=== PATIENT | female | born 1970 | race Caucasian/White ===

== ENCOUNTER 2022-10-04 13:36 | Outpatient (CLI) | payer OTHER, SELFPAY ==
--- NOTE | ~2022-10-04 | MR_ITS ---
MRI of the lumbar spine Clinical History: Spondylolisthesis Technique: Axial T2-weighted images, and sagittal T1-weighted, T2-weighted, and T2 fat-sat images wer e acquired. Findings: No fracture identified. There is 7 mm anterolisthesis of L4 over L5. There are reactive mar row signal changes about the L3-L4 and L4-L5 disc spaces due to underlying degenerative disc disease. At L1-L2, there is minimal degenerative disc narrowing. There is moderate facet arthropathy, no disc bulge or herniation. No central canal stenosis. There is moderate left neural foraminal narrowing and minimal right neural foraminal narrowing. At L2-L3, there is disc bulge and facet arthropathy, resulting in mild central canal stenosis. There is minimal bilateral neural foraminal narrowing. At L3-L4, there is advanced degenerative disc narrowing. Disc bulge and severe facet arthropathy cont ribute to severe spinal canal stenosis/thecal sac compression. There is severe right neural foraminal narrowing and moderate to severe left neural foraminal narrowing. At L4-L5, disc uncovering/bulge and advanced facet arthropathy result in severe central canal stenosi s/thecal sac compression. There is severe left neural foraminal narrowing and mild to moderate right neural foraminal narrowing. At L5-S1, there is advanced degenerative disc narrowing with diffuse disc bulge and moderate facet ar thropathy. No central canal stenosis. There is severe bilateral neural foraminal narrowing. Paravertebral soft tissues are unremarkable. Impression: 7 mm anterolisthesis of L4 over L5. Severe degenerative spondylitic changes at L3-L4 and L4-L5, as detailed above. Moderate degenerative change at L5-S1, with severe bilateral neural foraminal narrowing at this level . Reviewed, dictated and finalized at [facility] M. Impression: 7 mm anterolisthesis of L4 over L5. Severe degenerative spondylitic changes at L3-L4 and L4-L5, as detailed above. Moderate degenerative change at L5-S1, with severe bilateral neural foraminal n arrowing at this level.
--- NOTE | ~2022-10-04 | XR_ITS ---
XR lumbar spine min 4V 10/04/2022 14:11 Indication: Spondylolisthesis. Procedure: 4 views lumbar spine Comparison: No prior studies for comparison. Findings: There is levoscoliosis centered at L3. There is left lateral listhesis at L3-4. There is di sc narrowing at L3-4, L4-5 L5-S1. There is severe facet hypertrophy at L3-4 through L5-S1. No acute f racture or traumatic malalignment. There is grade 2 no significant alteration of alignment with flexi on and extension. Degenerative spondylolisthesis at L4-5. Impression: 1: Severe lumbar spondylosis with levoscoliosis. Reviewed, dictated and finalized at location A. Impression: 1: Severe lumbar spondylosis with levoscoliosis.
== END 2022-10-04 13:37 | disposition home or self-care (01) ==
LOC: ANHIMG 13:46
PROVIDERS: PCP Family Medicine; Visit Provider Neurological Surgery
DX: M47.816 Spondylosis without myelopathy or radiculopathy, lumbar region (principal); M41.86 Other forms of scoliosis, lumbar region
CPT/HCPCS: 72110; 72148

== ENCOUNTER 2022-11-27 13:15 | Outpatient (CLI) | payer OTHER, SELFPAY ==
--- NOTE | ~2022-11-27 | CT_ITS ---
EXAMINATION: CT lumbar spine wo con DATE: 11/27/2022 14:54 INDICATION: Spondylolisthesis. TECHNIQUE: Computed tomography (CT) of the lumbar spine was performed without intravenous contrast. A utomated exposure control and iterative reconstruction technique were employed. The dose-length produ ct was 1165.96 mGy-cm. COMPARISON: Lumbar spine MRI 10/04/2022 FINDINGS: There is 12 degrees levoscoliosis of thoracolumbar spine. There is 5 mm anterolisthesis of L4 on L5. There is mild chronic anterior wedging of T11-L1 vertebral bodies. There is mildly decrease d disc height at T12-L1, L1-L2, and L2-L3 and severely decreased disc height from L3-L4 through L5-S1 with endplate remodeling. The following disc levels are specifically discussed: L1-L2: The disc is bulging. There is severe right and mild left facet joint osteoarthritis. There is mild bilateral neural foraminal stenosis. There is mild central canal stenosis. L2-L3: The disc is bulging. There is severe right and moderate left facet joint osteoarthritis. There is mild bilateral neural foraminal stenosis. There is mild central canal stenosis. L3-L4: The disc is bulging. There is severe bilateral facet joint osteoarthritis. There is mild bilat eral neural foraminal stenosis. There is moderate central canal stenosis. L4-L5: The disc is bulging. There is severe bilateral facet joint osteoarthritis. There is mild bilat eral neural foraminal stenosis. There is moderate central canal stenosis. L5-S1: The disc is bulging. There is severe bilateral facet joint osteoarthritis. There is moderate b ilateral neural foraminal stenosis. There is mild central canal stenosis. IMPRESSION: 1. Severe lumbar spondylosis. 2. Thoracolumbar levoscoliosis. Reviewed, dictated and finalized at location A.
--- NOTE | ~2022-11-27 | DEXA_ITS ---
Bone Density Report Name: ANITA MALAGON Age: 52 Sex: Female Ethnicity: White Date of : 1970 Indication: postmenopausal; screening for osteoporosis; height loss; hysterectomy; Referring Provider: MISAEL CALLEJAS Study: Bone densitometry was performed. Exam Date: November 27, 2022 Accession number: [id number] Bone Density: Region BMD T-score Z-score Classification AP Spine(L1, L2) 0.987 0.1 1.0 Normal Femoral Neck (Left) 0.681 -1.5 -0.5 Osteopenia Total Hip (Left) 0.772 -1.4 -0.7 Osteopenia Femoral Neck (Right) 0.696 -1.4 -0.3 Osteopenia Total Hip (Right) 0.763 -1.5 -0.8 Osteopenia Total Hip Mean 0.768 -1.5 -0.8 Osteopenia World Health Organization criteria for BMD impression classify patients as: Normal (T-score at or above -1.0), Osteopenia (T-score between -1.0 and -2.5), or Osteoporosis (T-score at or below -2.5). 10-year Fracture Risk(1): Major Osteoporotic Fracture 5.7% Hip Fracture 0.4% Reported Risk Factors: [place] (), Neck BMD=0.681, BMI=43.3 (1) FRAX(R) Version 3.08. Fracture probability calculated for an untreated patient. Fracture probability may be lower if the patient has received treatment. Clinical Information Provided by Patient: Has the following medical conditions: Hysterectomy Patient maximum height was 62 Menopause Age: 51 No regular weight bearing exercise Drinks caffeinated beverages Onset of menses at age 7 Number of children 1 Impression: The patient has low bone mass, based on the Right Total Hip T-score. The patient has an estimated ten-year risk of hip fracture of 0.4% and an estimated ten-year risk of major fracture of 5.7%, based on the WHO FRAX algorithm. Discussion: BONE DENSITY IS LOW AT ONE OR MORE SKELETAL SITES. This patient's lowest T-score is low at one or more skeletal sites. It meets the World Health Organization's (WHO) criteria for ?low bone mass? (T-score between -1.0 and -2.5). The patient's 10-year risk of fracture as calculated by FRAX is less than the threshold where pharmacological therapy is recommended by the National Osteoporosis Foundation (NOF). However, all treatment decisions require clinical judgment and consideration of individual patient factors, including patient preferences, comorbidities, previous drug use, risk factors not captured in the FRAX model (e.g., frailty, falls, vitamin D deficiency, increased bone turnover, interval significant decline in bone density) and possible under or overestimation of fracture risk by FRAX. The patient should follow a healthful lifestyle (good nutrition with adequate calcium and vitamin D, and appropriate weight-bearing exercise). Follow-Up: Consider repeating this study in 2 to 3 years to reassess this patient's status, or sooner if there is some new clinical indicat
== END 2022-11-27 13:16 | disposition home or self-care (01) ==
PROVIDERS: PCP Family Medicine; Visit Provider Neurological Surgery
DX: Z78.0 Asymptomatic menopausal state (principal); M43.16 Spondylolisthesis, lumbar region; M41.85 Other forms of scoliosis, thoracolumbar region; M85.89 Other specified disorders of bone density and structure, multiple sites
CPT/HCPCS: 72131; 77080

== ENCOUNTER 2023-05-15 10:15 | Outpatient (CLI) | payer BC, SELFPAY ==
--- NOTE | ~2023-05-15 | XR_ITS ---
XR lumbar spine 2-3V 05/15/2023 10:52 Indication: Status post lumbar fusion. Procedure: 3 views lumbar spine Comparison: 10/04/2022 Findings: Status post posterior spinal fusion at L3-S1 with prosthetic disc device at L4-5. There is disc narrowing at L3-4. Hardware intact. Levoscoliosis. There is lateral bone graft at the fusion lev els. Impression: 1: Advanced lumbar spondylosis status post fusion at L3-S1. Reviewed, dictated and finalized at location A. 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
== END 2023-05-15 10:16 | disposition home or self-care (01) ==
LOC: ANHIMG 10:21
PROVIDERS: PCP Physician Assistant; Visit Provider Neurological Surgery
DX: Z98.1 Arthrodesis status (principal); M47.896 Other spondylosis, lumbar region
CPT/HCPCS: 72100

== ENCOUNTER 2023-08-21 10:33 | Outpatient (CLI) | payer BC, SELFPAY ==
--- NOTE | ~2023-08-21 | XR_ITS ---
EXAMINATION: XR lumbar spine 2-3V DATE: 08/21/2023 10:51 INDICATION: Lumbar fusion. TECHNIQUE: 3 views of lumbar spine were obtained. COMPARISON: Lumbar spine radiographs 05/15/2023 FINDINGS: There is 8 degrees levocurvature of thoracolumbar spine. There is 3 mm anterolisthesis of L 4 on L5. There is mild chronic anterior wedging of T12 and L1 vertebral bodies. There is severely dec reased disc height at L3-L4 and L5-S1. There are changes of anterior fusion procedure at L4-L5 with i nterbody devices. There are changes of posterior fusion procedure from L3 to S1 with pedicle screws. There is [id number] facet joint osteoarthritis in upper lumbar spine. IMPRESSION: 1. Anterior fusion procedure at L4-L5. 2. Posterior fusion procedure from L3 to S1. 3. Severe lower lumbar spondylosis. Reviewed, dictated and finalized at location A.
== END 2023-08-21 10:34 | disposition home or self-care (01) ==
PROVIDERS: PCP Physician Assistant; Visit Provider Neurological Surgery
DX: Z98.1 Arthrodesis status (principal); M47.896 Other spondylosis, lumbar region
CPT/HCPCS: 72100

== ENCOUNTER 2024-11-14 16:00 | Outpatient (CLI) | payer BC, SELFPAY ==
--- NOTE | ~2024-11-14 | XR_ITS ---
Lumbosacral Spine: AP and lateral views Clinical History: Radiculopathy COMPARISON: 08/21/2023 Findings: Stable levoscoliosis with spinal fusion from L3 through S1. Osseous and orthopedic hardware alignment is unchanged. Stable grade 1 retrolisthesis of L2 over L3. The sacroiliac joints are leonie lly outlined. Impression: No interval change from prior exam. Stable degenerative changes and postoperative changes, as noted a casimiro. Reviewed, dictated and finalized at location . Impression: No interval change from prior exam. Stable degenerative changes and postoperati ve changes, as noted above.
--- OUTSIDE RECORDS SUMMARY | 2024-11-14 16:05 | XMS_ITS | Clinical Summary ---
Author Organization [facility] Address [address] [place] [id number] Care Team Providers Care Crumb Packer Name Role Phone Dhara Kelly PA-C Primary Care Provider [phone]- [phone] Allergies Active Allergy Reactions Criticality Noted Date Comments Carbomer Itching,Swelling 01/30/2017 Acrylic nails, gel citizen of [place] - causes finger swelling and itchiness Medications buPROPion XL (WELLBUTRIN XL) 300 MG 24 hr tablet Take 1 tablet (300 mg total) by mouth every morning. 11/26/2022 Active gabapentin (NEURONTIN) 100 MG capsule Take 3 capsules (300 mg total) by mouth 3 (three) times daily as needed (neuropathy). Active atomoxetine (STRATTERA) 40 MG capsule Take 1 capsule (40 mg total) by mouth daily. 06/25/2022 Active Cyanocobalamin (B-12) 1000 MCG Tab Take 1,000 mcg by mouth every morning. 11/17/2022 Active omeprazole (PRILOSEC) 20 MG capsule Take 1 capsule (20 mg total) by mouth daily. Active Active Problems Problem Noted Date Diagnosed Date Spondylolisthesis 02/02/2023 Family History Medical History Relation Comments Breast Cancer Maternal Aunt Relation Status Comments Maternal Aunt Social History Tobacco Use Types Packs/Day Years Used Date Smoking Tobacco: Never Smokeless Tobacco: Never Alcohol Use Standard Drinks/Week Comments Not Currently 0 (1 standard drink = 0.6 oz pur e alcohol) Humiliation, Afraid, Rape, and Kick questionnair e Answer Date Recorded Within the last year, have y ou been afraid of your partner or ex-partner? No 02/02/2023 Within the last year, have y ou been humiliated or emotionally abused in other ways by your partner or ex-partner? No Within the last year, have y ou been kicked, hit, slapped, or otherwise physically hurt by your partner or ex-partner? No 02/02/2023 Within the last year, have y ou been raped or forced to have any kind of sexual activity by your partner or ex-partner? No 02/02/2023 Overall Financial Resource Strain (CARDIA) Answe r Date Recorded How hard is it for you to pa y for the very basics like food, housing, medical care, and heating? Not hard at all 02/02/2023 [facility] - Occupational Stress Questionnaire Answer Date Recorded Do you feel stress - tense, restless, nervous, or anxious, or unable to sleep at night because your mind is troubled all the time - these days? Not at all 02/02/2023 Exercise Vital Sign Answer Date Recorde d On average, how many days pe r week do you engage in moderate to strenuous exercise (like a brisk walk)? 0 days 02/02/2023 On average, how many minutes do you engage in exercise at this level? 0 min 02/02/2023 Hunger Vital Sign Answer Date Recorded Within the past 12 months, y ou worried that your food would run out before you got the money to buy more. Never true 02/03/20 23 Within the past 12 months, t he food you bought just didn't last and you didn't have money to get more. Never true 02/02/2023 PRAPARE - Transportation Answer Date Re corded In the past 12 months, has l ack of transportation kept you from medical appointments or from getting medications? No 01/17 In the past 12 months, has l ack of transportation kept you from meetings, work, or from getting things needed for daily living? No 02/02/2023 Housing Stability Vital Sign Answer Bryan e Recorded In the last 12 months, was t here a time when you were not able to pay the mortgage or rent on time? No 02/02/2023 In the last 12 months, how many places have you lived? 1 02/02/2023 In the last 12 months, was t here a time when you did not have a steady place to sleep or slept in a detention (including now)? No 02/02/2023 Comments No Sex and Gender Information Value Date Recorded Sex Assigned at Not on file Legal Sex Female 5:09 PM CDT Gender Identity Not on file Sexual Orientation Not on file Last Filed Vital Signs Vital Sign Reading Time Taken Comments Blood Pressure 118/67 02/04/2023 10:41 AM CDT Pulse 99 02/04/2023 10:41 AM CDT Temperature 37.2 C (99 F) 02/04/2023 10:41 AM CDT Respiratory Rate 14 02/04/2023 10:41 AM CDT Oxygen Saturation 98% 02/04/2023 10:41 AM CDT Inhaled Oxygen Concentration - - Weight 96.2 kg (212 lb 1.3 oz) 02/02/2023 6:31 A M CDT Height 157.5 cm (5' 2) 01/26/2023 11:09 AM CDT Body Mass Index 38.79 01/26/2023 11:09 AM CDT Plan of Treatment Health Maintenance Due Date Last Done Comments Colorectal Cancer Screening Colonoscopy (10 Years) 1970 Annual Physical 01/14/1971 Hepatitis C 01/14/1986 Pneumococcal Vaccine: 50+ Years (1 of 1 - PCV) 01/14/2018 Zoster Vaccines (1 of 2) 01/14/2018 COVID-19 Vaccine (3 - 2023-2 5 season) 2023 05/23/2021, 05/02/2021 DTaP, Tdap and Td Vaccines ( 2 - Td or Tdap) 12/17/2025 12/18/2015 Mammogram Screening 03/15/2026 03/15/2024, 03/03/2023, 03/02/2022 Hepatitis B Vaccines Completed 07/09/2016, 01/21/2016, 12/18/2015 Meningococcal B Vaccine Aged Out No l onger eligible based on patient's age to complete this topic Meningococcal Vaccine Aged Out No savita jesica eligible based on patient's age to complete this topic RSV Immunizations Under 20 Months Aged Out No longer eligible b ased on patient's age to complete this topic Medical Devices Implanted Type Area Cloth Layer Device Identifier Shelf Expiration Date Model / Serial / Lot Corelink F3d Straight Implanted:Qty: 1 on 02/02/2023 by Karime Jauregui MD at [facility] Cage N/A: Spine Lumbar [id number] 20 02/04/2027 [id number] / / [id number] Corelink Rods Implanted:Qty: 2 on 02/02/2023 by Karime Jauregui MD at [facility] Tavo N/A: Spine Lumbar [id number] / / Orthofix Set Screw Implanted:Qty: 8 on 02/02/2023 by Karime Jauregui MD at [facility] Screw N/A: Spine Lumbar NEW AGE MEDICAL [id number] / / Orthofix 6.5 X 45mm Screw Implanted:Qty: 6 on 02/02/2023 by Karime Jauregui MD at [facility] Screw N/A: Spine Lumbar NEW AGE MEDICAL [id number] / / Orthofix 6.5 X 35mm Screw Implanted:Qty: 2 on 02/02/2023 by Karime Jauregui MD at [facility] Screw N/A: Spine Lumbar NEW AGE MEDICAL [id number] / / Breast Implants Orthofix Top Loading Body Implanted:Qty: 8 on 02/02/2023 by Karime Jauregui MD at [facility] N/A: Spine Lumbar NEW AGE MEDICAL 34 / / Procedures Procedure Name Priority Date/Time Associated Diagnosis Comments MG SCREENING IMPLANT W MENA ОЛЬГА DIGI Routine 03/15/2024 4:30 PM PLANER OFFBEARER Encounter for screening mammogram for malignant neoplasm of breast from Last 3 Months or Most Recently Relevant to Health Maintenance Results * MG SCREENING IMPLANT W MENA ОЛЬГА DIGI (03/15/2024 4:30 PM PLANER OFFBEARER) Anatomical Region Laterality Modality Breast Bilateral Mammography 03/15/2024 4:59 PM PLANER OFFBEARER Impressions 03/15/2024 5:04 PM PLANER OFFBEARER ===== IMPRESSION: ===== 1. Stable mammographic appearance with no new findings to suggest malignancy in either breast. Assessment: ACR BI-RADS 2 - BENIGN FINDING(S) Recommendation: 1:Routine Screening Bilateral Comments: Ordered By: AMBER SAUCEDO Interpreted By: Eulogio Mayorga, 03/15/2024 4:59 PM Narrative 03/15/2024 5:04 PM PLANER OFFBEARER [address] [place] [address] EXAMINATION: Digital bilateral screening mammogram with 3-D tomosynthesis EXAM DATE/TIME: 03/15/2024 4:10 PM REASON FOR EXAM: Screening Breast implants in 2007 with breast reconstruction.. Breast carcinoma in maternal aunt at age 60 COMPARISON: 03/02/2022. 03/03/2023 Technique: Digital screening mammography of both breasts was performed in addition to 3-D Tomosynthesis technique. This study was read with the assistance of a computer-aided detection system. Tissue density: There are scattered areas of fibroglandular density. Findings: Bilateral breast prostheses are intact. There is no new focal asymmetry, dominant mass lesion, area of skin thickening, or cluster of suspicious appearing calcifications in either breast to suggest malignancy. 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
--- OUTSIDE RECORDS SUMMARY | 2024-11-14 16:05 | XMS_ITS | Data Portability ---
Author Organization [facility], [id number] Address [address] [place] [address] Assessment No assessment recorded. Plan of Treatment Reminders Order Date Submit Date Provider Last Modified By Organization Details Last Modified Time Details Appointments ANNUAL- EST 15 2025 03:15P Gabriel DILLON MD Not available Not available Not available Lab estradiol , serum 2024 025 [facility], [address] [place], [address], 09/20/2024 13:59:10 progester one, serum [address] [place] [address], [address] [place], [address], 09/20/2024 13:59:10 testoster one, free + total, serum 2024 025 [facility], [address] [place], [address], 09/20/2024 13:59:11 vitamin D, 25-hydrox y, total, serum 2024 025 [facility], [address] [place], [address], 09/20/2024 13:59:11 vitamin B12, serum 2024 025 [facility], [address] [place] [address], [address], 09/20/2024 13:59:11 TSH + free T4, serum 2024 025 [facility], [address] [place], [address], 09/20/2024 13:59:11 cortisol, serum or plasma 2024 025 [facility], [address] [place] [address], [id number], 09/20/2024 13:59:11 insulin, fasting, serum [address] [place] [address], [address] [place] [address], [address], 09/20/2024 13:59:11 HbA1c (hemoglob in A1c), blood 2024 025 [facility], [address] [place] [address], [id number], 09/04/2024 12:29:39 Referral None recorded. Procedures None recorded. Surgeries None recorded. Imaging MAMMO, screening , tomosynth esis, bilateral [address] [place] [address] Registration Department, [address] [place] [address] [place], [address], 09/06/2024 09:09:24 Medication Orders None recorded. Patient TargetsNo targets recorded. Patient Instructions Encounter Date Encounter Id Patient Instructions Last Modified By Organization Details Last Modified Time 08/23/2024 [id number] diet and exercise for metabolic syndrome: care instructions [email or web address] Not available 08/23/2024 16:28:12 Reason for Referral None Reported. Results Created Date Observation Date Name Description Value Unit Range Abnormal Flag Note LastModifiedBy Organization Detail LastModifiedTime Result Notes Documentation Provider Name and Address Organization Details Recorded Time Estradiol, Serum : estradiol and progesterone normal AMBER SAUCEDO MD [address], [place], [address], [facility] 10/03/2024 11:07:05 Problems Name Problem SNOMED Code Status Onset Date Resolution Date Notes Provider Name and Address Organization Details Recorded Time Atypical glandula r cells on cervical Papanico laou smear 646700853 Active Abnormal PAP Smear, 07/01/19 12 - ds hx of leep or conizati on Problem Code: 795.00; Problem Code Type: ICD-9; Startdat e: '1992'; Not Available [facility] 5 12:02:59 Chronic depressi ve personal ity disorder 636625621 Active Depressi on, Problem Code: 301.12; Problem Code Type: ICD-9; Startdat e: '2011'; Not Available [facility] 5 12:02:59 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, [place], [address] , [facility] 5 16:21:59 Obesity 044090771 Active [address], MD [address], [place], [address] , [facility] 16:25:13 Problem Notes None recorded. Procedures Surgical History Date Name Laterality Status Provider Name and Address Organization Details Recorded Time 03/15/20 24 Date of Last [facility]ammogram [facility] 08/23/2024 14:34:41 12/19/19 20 total knee replacement completed Not Available [facility] 08/17/2024 12:52:03 04/10/20 16 arthroscopy of knee completed Not Available [facility] 08/17/2024 12:52:03 Breast augmentation w/implt completed Not Available [facility] 08/17/2024 12:52:02 Conization of cervix completed Not Available [facility] 08/17/2024 12:52:02 dilation and curettage completed Not Available [facility] 08/17/2024 12:52:02 hysterectomy completed [facility] Available [facility] 08/17/2024 12:52:02 colonoscopy completed Not Available [facility] 08/17/2024 12:52:03 Breast Surgery [facility] 08/23/2024 15:54:50 Imaging Results None recorded. Procedure Notes None recorded. Medical Equipment None Reported. Allergies No known drug allergies Medications Name Sig Start Date Stop Date Status Note LastModified by Organization Details LastModified Time nystatin 100,000 unit/mL oral suspension SWISH 5 ML IN MOUTH AND SWALLOW 4 TIMES DAILY 08/23 completed Not Available Not Available Not Available prednisone 10 mg tablet TAKE 6 TABLETS BY MOUTH TODAY, 5 TABS TOMORROW, THEN DECREASE BY 1 TAB DAILY. TAKE WITH FOOD 08/23 completed Not Available Not Available Not Available fluconazole 150 mg tablet TAKE 1 TABLET BY MOUTH ONCE DAILY IN THE MORNING FOR 7 DAYS 08/23 completed Not Available Not Available Not Available benzonatate 200 mg capsule TAKE 1 CAPSULE BY MOUTH THREE TIMES DAILY NEEDED 08/23 completed Not Available Not Available Not Available prednisone 20 mg tablet TAKE 2 TABLETS BY MOUTH FOR 3 DAYS, THEN TAKE 1 TABLET FOR 7 DAYS. 08/23 completed Not Available Not Available Not Available tramadol 50 mg tablet TAKE 2 TABLETS BY MOUTH EVERY 12 HOURS NEEDED FOR PAIN active Not Available Not Available No t Available estradiol 1 mg tablet Take 1 tablet by mouth twice daily 2024 active Not Available Not Available Not Avai lable progesteron e micronized 200 mg capsule TAKE 1 CAPSULE BY MOUTH EVERY DAY AT BEDTIME 2024 active Not Available Not Available Not Avai lable albuterol sulfate HFA 90 mcg/actuati on aerosol inhaler INHALE 2 PUFFS BY MOUTH 4 TIMES DAILY NEEDED FOR COUGH 08/23 completed Not Available Not Available Not Available celecoxib 100 mg capsule TAKE 1 CAPSULE BY MOUTH ONCE DAILY NEEDED active Not Available Not Available No t Available atomoxetine 40 mg capsule TAKE 1 CAPSULE BY MOUTH ONCE DAILY IN THE MORNING active Not Available Not Available No t Available bupropion HCl XL 300 mg 24 hr tablet, extended release TAKE 1 TABLET BY MOUTH ONCE DAILY IN THE MORNING active Not Available Not Available No t Available Caryn 0.1 mg/24 hr transdermal patch APPLY 1 PATCH TOPICALLY TWICE A WEEK 08/23 completed Not Available Not Available Not Available Vitals Date Recorded Body weight Body mass index (BMI) Body height Systolic And Diastolic Provider Name and Address Organization Details Last Updated DateTime 08/23/2024 91525.44 g 37.5 kg/m2 157.48 cm 122/64 mm[Hg] Deborah Padron [facility] 08/23/2024 15:58:57 Social History Question Answer Notes LastModified by Organizat ion Details LastModified Time Tobacco Smoking Status Former Smoker Screening : 8 [facility] Available [facility] 08/17/2024 12:58:21 Do You Have An Advance Directive? No Information not available 08/23/2024 What Is Your Level Of Caffeine Consumption? Occasional Information not available 08/23/2024 What Type Of Diet Are You Following? REGULAR Information not available 08/23/2024 What Is Your Relationship Status? Information not available 08/23/2024 Sex: Female Functional Status Question Answer Note LastModified by Organizat ion Details LastModified Time Do you use any illicit or recreational drugs? No [email or web address] Information not available 08/17/2024 What is your level of alcohol consumption? Occasional Qty: 0-2 per day; Note: Use status used: Current some day Amount used: social Information not available 08/17/2024 Are you currently employed? 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 Moderate SocialHistor yQuestion: 'Moderate Amount of Exercise (1-3 times weekly)'; Information not available 08/17/2024 Mental Status None recorded. Family History Relationship Description Onset Age of this Age Resolved Age Notes LastModified by Organization Details LastModified Time Brother Malignant neoplastic disease Cancer - [facility] 2016 Not available 08/17/2024 13:39:14 Brother Hypertensive disorder High Blood Pressu re Not available 08/17/2024 13:39:14 Maternal Grandfather Malignant neoplastic disease Cancer - [facility] 2016 Not available 08/17/2024 13:39:14 Unspecified Relation Malignant neoplastic disease Cancer - [facility] 2016 Relati ve: 'Uncle '; Not available 08/17/2024 13:39:14 Father Hypertensive disorder High Blood Pressu re Not available 08/17/2024 13:39:14 Brother Aneurysm Aneury - [facility] 2016 API-27 Not available 08/23/2024 15:53:18 Medical History Condition Response Psych- Depression Y Cancer- Genetic screening Ortho- Arthritis Y Endocrinology- Hypothyroidism Y Gynecological History Statement/Question Response Flow Heavy Date of Last Mammogram 03/15/2024 History of Fibroids Y Date of LMP 07/12/2011 Current Control Method: Hysterecto my Age at first intercourse 16 Date of Last Colonoscopy History of Infertility Y History of Vulvar Dysplasia N History of Cervical Dysplasia N Duration of Flow (days) 0 History of HPV Y Age at Menarche 7 Current Control Method None History of Endometriosis N Frequency of Cycle (Q days) 0 Sexually Active? Y History of Abnormal PAP Y History of Dysmenorrhea N Menses Monthly N Date of Last Pap Smear Sexual Problems? N History of Sexually Transmitted Infectio n N Obstetrics History GPAL:G 4 P 1 0 3 1 Type Value Multiple Births 0 Full Term 1 Induced 0 Spontaneous 3 Premature 0 Living 1 Ectopics 0 Total 4 Immunizations Vaccine Type Date Status Note Provider Nam e and Address Organization Details Recorded Time Tdap 12/18/[address] [facility] 08/23/2024 11:56:21 Past Encounters Encounter ID Performer Location Encounter Start Date Encounter Closed Date Diagnosis/Indication Diagnosis SNOMED-CT Code Diagnosis ICD10 Code Diagnosis Note [id number] AMBER BELTRÁN RD, MD [id number] [address] [place] [address] 08/23/2024 15:52:14 08/23/2024 16:24:48 Screening mammography 79251431 Z12.31 Fatigue 96070028 R53.82 Check Vitamin D and B12 Menopausal syndrome 1237 67372 N95.9 Continue current doses but we may need to increase Gynecologi c examination 89205987 Z01.419 Yearly mammogramR egular exercise once knee is betterFU in one yearScreen ing colonoscop yGeneral lab screening yearly Obesity 876719159 E66.81 2 Z68.35 Recommend GLP-1 treatment but she does not think she has insurance coverage.T his handout has some ideas for nutrition changes. Health Concerns Section Related Observation LastModified by Organization Detai ls LastModified Time None Recorded Concern Status LastModified by Organization Details LastModified Time None Recorded Advance Directives Directive N: Payers Insurance Date Sequence Insurance Name Policy Number Policy Piper Covered Member ID Piper Member ID Guarantor Name 09/01/2024 1 [place] [id number] Iliana Swan [id number] Iliana Swan OBGyn Episode Ob Episode Information Episode Created Date Number of Fetuses Patient Bloodtype Patient rh Status Prepregnancy Weight lbs Domestic Partner Domestic Partner Phone Father Name 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 Status 09/01/19 25 1 CLOSED Fetus Data First Name Last Name Admitted to NICU Weight (g) Sex Living Outcome Pediatric Complications Fetus ID Race Codes Race Delivery Type M [id number] Vaginal Jared Calculation Initial Jared Date Initial Exam Date Initial Exam Provider Initial Ultrasound Date Last Menstrual Period Date Ultra Sound Weeks Gestation 0 Eighteen To Twenty Week Jared Update Ultra Sound Date Fundal Height At Umbil Quickening Date Ultra Sound Latest Weeks Gestation Final Jared Confirmed By Final Jared Confirmed Date Final Jared Date Ultra Sound Latest Days Gestation 0 0 Menstrual History Last Menstrual Date Menses Monthly On Bcp Conception Prior Menses Frequency Hcg Plus Date Menarche Onset Age Delivery Information Delivery Date Delivery Type Labor Anesthesia Weeks Gestation Incision Type Labor Labor Length Hrs Delivered By Post Complications Tubal Sterilization Discharge Date Comments 4 [facility] idural 38 false [place] e, fetus_1_w eight_lbs : '8-5'; Discharge Information Feeding Method Contraceptive Method Maternal HG B and HCT Levels
--- OUTSIDE RECORDS SUMMARY | 2024-11-14 16:05 | XMS_ITS | Data Portability ---
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 [email or web address] Not available 04/10/2022 10:34:15 08/06/2023 08/06/2023 Sections of the HPI, exam and assessment completed by SUNNI Diaz student and have been reviewed by me. I agree with the exam findings, assessment and plan except where specifically documented or amended. -Dhara Johnson, [facility], [place] [email or web address] Not available 08/06/2023 12:22:51 Plan of Treatment Reminders Order Date Submit Date Provider Last Modified By Organization Details Last Modified Time Details Appointments None recorded. Lab CMP, serum or plasma 2024 025 [email or web address] [facility], [address] [place], [address], 5 08:08:07 HbA1c (hemoglobi n A1c), blood 2024 025 [email or web address] [facility], [address] [place], [address], 5 08:08:07 lipid panel, serum 2024 025 [facility], [address] [place], [address], 5 08:08:07 TSH, serum or plasma [address], [address] [place], [address], 5 08:00:50 CBC w/ auto diff [address], [address] [place], [address], 5 08:08:07 drug screen, 14 drugs (detectime d), urine 2023 024 [facility], [address] [place] [address], [address], [place], [address], 4 15:07:49 culture, aerobic + anaerobic 2022 023 [facility], [address], [address], [place], [address], 3 14:08:31 drug screen, 14 drugs (detectime d), urine 2022 023 [facility], [address], [place], [address], 3 20:09:11 CBC w/ auto diff [address], [address] [place], [address], 3 10:18:51 CMP, serum or plasma [address], [address] [place], [address], 3 10:18:51 lipid panel w/ direct LDL, serum 2021 [facility], [address] [place], [address], 2 11:45:13 TSH + free T4, serum [address], [address] [place], [address], 3 10:18:51 HbA1c (hemoglobi n A1c), blood [address], [address] [place] [address], [address], 3 10:18:51 iron + TIBC + ferritin, serum 2021 [facility], [address] [place], [address], 2 11:45:13 ESR (erythrocy te sedimentat ion rate), blood 2021 [facility], [address] [place], [address], 2 11:45:13 C reactive protein, QN, serum or plasma [address], [address] [place], [address], 3 10:18:51 Referral None recorded. Procedures None recorded. Surgeries None recorded. Imaging MAMMO, screening, bilateral 2022 023 [facility] (Radiology), [address] [place] [address], [place], [address], 3 10:56:54 Medication Orders Ozempic 0.25 mg or 0.5 mg (2 mg/1.5 mL) subcutaneo us pen injector 2024 025 [facility] [address] [place], [address], 5 16:51:12 fluconazol e 150 mg tablet 2024 025 [facility] [address] [place], [address], 5 16:39:04 bupropion HCl XL 300 mg 24 hr tablet, extended release 2024 025 [facility] [address] [place], [address], 5 16:42:29 atomoxetin e 40 mg capsule 2024 025 [facility] [address] [place], [address], 5 16:42:31 cyclobenza noe 10 mg tablet 2023 024 [facility] [address] [place], [address], 4 14:54:36 gabapentin 300 mg capsule 2022 023 [facility] [address] [place], [address], 4 12:34:46 gabapentin 100 mg capsule 2022 023 [facility] [address] [place], [address], 3 15:18:35 tramadol 50 mg tablet 2021 022 [facility] [address] [place], [address], 4 18:30:12 Adderall XR 20 mg capsule,ex tended release 2021 022 [facility] [address] [place], [address], 3 15:07:47 Patient TargetsNo targets recorded. Patient Instructions Encounter Date Encounter Id Patient Instructions Last Modified By Organization Details Last Modified Time 08/12/2022 [id number] hot flashes during menopause: care instructions [email or web address] Not available 08/12/2022 15:13:10 A healthy lifestyle: care instructions [email or web address] Not available 08/12/2022 15:12:06 01/25/2023 [id number] I have reviewed the patient's medical record and the note from this clinical encounter. I was available by phone for the duration of the visit. I agree with the assessment and plan with the following addendum: [none]. Luis Gtz MD [email or web address] Not available 01/26/2023 12:09:44 08/06/2023 [id number] A healthy lifestyle: care instructions [email or web address] Not available 08/08/2023 14:50:54 06/27/2024 [id number] A healthy lifestyle: care instructions [email or web address] Not available 06/27/2024 16:48:29 Reason for Referral None Reported. Results Created Date Observation Date Name Description Value Unit Range Abnormal Flag Note LastModifiedBy Organization Detail LastModifiedTime 08/13/1908/18/2022 COMPL IANCE DRUG OLAMIDE SIS, UR summary report (summary) FINAL ===== ===== ===== ===== ===== ===== ===== ===== ===== ===== ===== ===== ===== === TOXAS SURE COMP DRUG OLAMIDE SIS,U R ===== ===== ===== ===== ===== ===== ===== ===== ===== ===== ===== ===== ===== === Test Resul t Flag Units Drug Prese nt Amphe tamin e 1207 ng/mg creat Amphe tamin e is avail able as a sched ule II presc ripti on drug. Trama dol 2916 ng/mg creat O-Efrain methy ltram adol 888 ng/mg creat N-Efrain methy ltram adol 3171 ng/mg creat Sourc e of trama dol is a presc ripti on medic ation . O-efrain methy ltram adol and N-efrain methy ltram adol are expec alyssa metab olite s of trama dol. Bupro pion PRESE NT Sibley xybup ropio n PRESE NT Sibley xybup ropio n is an expec alyssa metab olite of bupro pion. Ibupr ofen PRESE NT Doxyl amine PRESE NT Dextr ometh orpha n PRESE NT Dextr orpha n/Lev orpha nol PRESE NT Dextr orpha n is an expec alyssa metab olite of dextr ometh orpha n, an over- the-c ounte r or presc ripti on cough suppr essan t. Dextr orpha n canno t be disti nguis hed from the sched uled presc ripti on medic ation levor phano l by the metho d used for olamide sis. Guaif enesi n PRESE NT Guaif enesi n may be admin ister ed as an over- the-c ounte r or presc ripti on drug; it may also be prese nt as a break down produ ct of metho carba mol. ===== ===== ===== ===== ===== ===== ===== ===== ===== ===== ===== ===== ===== === Test Resul t Flag Units Ref Range Creat inine 91 mg/dL >=20 ===== ===== ===== ===== ===== ===== ===== ===== ===== ===== ===== ===== ===== === Decla red Medic ation s: Medic ation list was not provi ded. ===== ===== ===== ===== ===== ===== ===== ===== ===== ===== ===== ===== ===== === For clini augustina consu ltati on, pleas e call [phone]. ===== ===== ===== ===== ===== ===== ===== ===== ===== ===== ===== ===== ===== === Not Available [facility] ([facility]) [address] [place], [address], 08/18/2022 20:09:10 08/13/1908/18/2022 COMPL IANCE DRUG OLAMIDE SIS, UR pdf . Not Available [facility] ([facility]) [address] [facility], [place], [address], 08/18/2022 20:09:10 01/26/20 23 01/29/2023 ANAER OBIC AND AEROB IC CULTU RE anaerobic culture Final report Not Available [facility] ([facility]) [address] [place], [address], 01/31/2023 14:08:31 01/26/20 23 01/29/2023 ANAER OBIC AND AEROB IC CULTU RE result 1 Commen t No anaer obic growt h in 72 hours . Not Available [facility] ([facility]) [address] [facility], [place], [address], 01/31/2023 14:08:31 01/26/20 23 01/31/2023 ANAER OBIC AND AEROB IC CULTU RE aerobic culture Final report Not Available [facility] ([facility]) [address] [facility], [place], [address], 01/31/2023 14:08:31 01/26/2001/31/2023 ANAER OBIC AND AEROB IC CULTU RE result 1 Mixed skin cheri Not Available [facility] ([facility]) [address] [facility], [place], [address], 01/31/2023 14:08:31 01/27/20 23 01/28/2023 Bacte marilu ident ified in Urine by Cultu re specimen source identified URINE CLEAN CATCH SPEC DESCR IPTIO N URINE CLEAN CATCH 01/26 12:[address] [facility] Not Available Not Available 06/27/2024 05:12:53 01/27/2001/28/2023 Bacte marilu ident ified in Urine by Cultu re service comment NO SPECIA L REQUES T SPECI AL REQUE STS NO SPECI AL REQUE ST 01/26 12:[address] [facility] Not Available Not Available 06/27/2024 05:12:53 01/27/2001/28/2023 Bacte marilu ident ified in Urine by Cultu re bacteria identified in specimen by culture POLYMI CROBIA L GROWTH CONSIS TENT WITH NORMAL GENITA L CHERI. SUSCEP TIBILI TIES NOT ROUTIN FIDELIA PERFOR MED. CULTU RE RESUL T POLYM ICROB IAL GROWT H CONSI STENT WITH LEEANNE L GENIT AL CHERI . SUSCE PTIBI LITIE S NOT ROUTI SAUL PERFO RMED. 01/28 8:[address] [facility] Not Available Not Available 06/27/2024 05:12:53 01/27/2001/26/2023 Urina lysis compl ete W Refle x Cultu re panel - Urine collection method - specimen URINE CLEAN CATCH Speci men Type URINE CLEAN CATCH 01/26 11:[address] [facility] Not Available Not Available 06/27/2024 05:12:53 01/27/20 23 01/26/2023 Urina lysis compl ete W Refle x Cultu re panel - Urine color of urine LIGHT YELLOW COLOR (U) LIGHT YELLO W 01/26 12:[address] [facility] Not Available Not Available 06/27/2024 05:12:53 01/27/2001/26/2023 Urina lysis compl ete W Refle x Cultu re panel - Urine clarity of urine CLEAR TRANS PAREN CY CLEAR 01/26 12:[address] [facility] Not Available Not Available 06/27/2024 05:12:53 01/27/2001/26/2023 Urina lysis compl ete W Refle x Cultu re panel - Urine specific gravity of urine 1.015 low: 1.001h igh: 1.03 SPECI FIC GRAVI TY (U) 1.015 1.001 - 1.030 01/26 12:[address] [facility] Not Available Not Available 06/27/2024 05:12:53 01/27/2001/26/2023 Urina lysis compl ete W Refle x Cultu re panel - Urine pH of urine 5.5 low: 5high: 9 U PH 5.5 5.0 - 9.0 01/26 12:[address] [facility] Not Available Not Available 06/27/2024 05:12:53 01/27/2001/26/2023 Urina lysis compl ete W Refle x Cultu re panel - Urine leukocytes [#/volume] in urine by test strip 25 text: negati ve abnormal LEUKO CYTES (U) 25 (A) NEGAT DEN 01/26 12:[address] [facility] Not Available Not Available 06/27/2024 05:12:53 01/27/20 23 01/26/2023 Urina lysis compl ete W Refle x Cultu re panel - Urine nitrite [presence] in urine NEGATI VE text: negati ve NITRI JOSE DANIEL NEGAT DEN NEGAT DEN 01/26 12:[address] [facility] Not Available Not Available 06/27/2024 05:12:53 01/27/20 23 01/26/2023 Urina lysis compl ete W Refle x Cultu re panel - Urine protein [mass/volume ] in urine by test strip NEGATI VE text: <30 mg/dL PROTE IN RANDO M (U) NEGAT DEN <30 MG/DL 01/26 12:[address] [facility] Not Available Not Available 06/27/2024 05:12:53 01/27/2001/26/2023 Urina lysis compl ete W Refle x Cultu re panel - Urine glucose [mass/volume ] in urine NORMAL text: normal mg/dL GLUCO SE (U) LEEANNE L LEEANNE L MG/DL 01/26 12:[address] [facility] Not Available Not Available 06/27/2024 05:12:53 01/27/20 23 01/26/2023 Urina lysis compl ete W Refle x Cultu re panel - Urine ketones [mass/volume ] in urine by test strip NEGATI VE text: negati ve mg/dL KETON ES (U) NEGAT DEN NEGAT DEN MG/DL 01/26 12:[address] [facility] Not Available Not Available 06/27/2024 05:12:53 01/27/20 23 01/26/2023 Urina lysis compl ete W Refle x Cultu re panel - Urine urobilinogen [units/volum e] in urine by test strip NORMAL text: normal mg/dL UROBI LINOG EN LEEANNE L LEEANNE L MG/DL 01/26 12:[address] [facility] Not Available Not Available 06/27/2024 05:12:53 01/27/20 23 01/26/2023 Urina lysis compl ete W Refle x Cultu re panel - Urine bilirubin.to radha [mass/volume ] in urine NEGATI VE text: negati ve mg/dL BILIR UBIN (U) NEGAT DEN NEGAT DEN MG/DL 01/26 12:[address] [facility] Not Available Not Available 06/27/2024 05:12:53 01/27/20 23 01/26/2023 Urina lysis compl ete W Refle x Cultu re panel - Urine erythrocytes [#/volume] in urine by automated test strip NEGATI VE text: negati ve BLOOD (U) NEGAT DEN NEGAT DEN 01/26 12:[address] [facility] Not Available Not Available 06/27/2024 05:12:53 01/27/20 23 01/26/2023 Urina lysis compl ete W Refle x Cultu re panel - Urine service comment SPECIM EN SETUP FOR CULTUR E CULTU RE & SENSI TIVIT Y INDIC ATED? SPECI MEN SETUP FOR CULTU RE 01/26 12:[address] [facility] Not Available Not Available 06/27/2024 05:12:53 01/27/20 23 01/26/2023 Urina lysis compl ete W Refle x Cultu re panel - Urine mucus [#/area] in urine sediment by microscopy low power field RARE text: /lpf MUCUS RARE /LPF 01/26 12:[address] [facility] Not Available Not Available 06/27/2024 05:12:53 01/27/20 23 01/26/2023 Urina lysis compl ete W Refle x Cultu re panel - Urine leukocytes [#/area] in urine sediment by microscopy high power field 1 text: <6 /hpf WBC/H PF 1 <6 /HPF 01/26 12:10 PM CDT [facility] Not Available Not Available 06/27/2024 05:12:53 01/27/20 23 01/26/2023 Urina lysis compl ete W Refle x Cultu re panel - Urine erythrocytes [#/area] in urine sediment by microscopy high power field <1 text: <6 /hpf RBC/H PF <1 <6 /HPF 01/26 12:[address] [facility] Not Available Not Available 06/27/2024 05:12:53 01/27/20 23 01/26/2023 Urina lysis compl ete W Refle x Cultu re panel - Urine epithelial cells.squamo us [#/area] in urine sediment by microscopy high power field RARE text: /hpf SQUAM OUS EPITH ELIAL S RARE /HPF 01/26 12:[address] [facility] Not Available Not Available 06/27/2024 05:12:53 01/27/20 23 01/26/2023 Urina lysis compl ete W Refle x Cultu re panel - Urine interpretati on and review of laboratory results Abnorm al Not Available Not Available 05:12:53 01/27/2001/26/2023 aPTT in Plate let poor plasm a by Coagu latio n assay APTT in platelet poor plasma by coagulation assay 36.2 text: 25.1 - 36.5 sec PTT 36.2 25.1 - 36.5 SEC 01/26 12:[address] [facility] Not Available Not Available 06/27/2024 05:12:53 01/27/2001/26/2023 Proth rombi n time (PT) prothrombin time (PT) 11.9 text: 10.2 - 12.9 sec PROTI ME 11.9 10.2 - 12.9 SEC 01/26 12:[address] [facility] Not Available Not Available 06/27/2024 05:12:53 01/27/20 23 01/26/2023 Proth rombi n time (PT) INR in platelet poor plasma by coagulation assay 1 INR 1.0 01/26 12:[address] [facility] Not Available Not Available 06/27/2024 05:12:53 01/27/20 23 02/02/2023 Blood type and Indir ect antib mike scree n panel - Blood ABO and Rh group panel - blood AB POSITI VE ABO/R H AB POSIT DEN 01/26 1:[address] [facility] Not Available Not Available 06/27/2024 05:12:53 01/27/2002/02/2023 Blood type and Indir ect antib mike scree n panel - Blood blood group antibody screen [presence] in serum or plasma NEGATI VE ANTIB MIKE SCREE N NEGAT DEN 01/26 1:[address] [facility] Not Available Not Available 06/27/2024 05:12:53 01/27/20 23 02/02/2023 Blood type and Indir ect antib mike scree n panel - Blood specimen expiration date of blood 2022,2 359 SAMPL E EXPIR ATION 02/05 ,2359 02/02 7:[address] [facility] Not Available Not Available 06/27/2024 05:12:53 01/27/2002/02/2023 Blood type and Indir ect antib mike scree n panel - Blood blood bank comment NO HISTOR Y OF TRANSF USIONS ,PREGN KENNETH OR ANTIBO DIES, NEW SPECIM EN NOT NEEDED BB COMME NT NO HISTO RY OF TRANS FUSIO NS,SC EGNAN CY OR ANTIB ODIES , NEW SPECI MEN NOT NEEDE D 02/02 7:[address] [facility] Not Available Not Available 06/27/2024 05:12:53 01/27/2001/26/2023 Basic metab olic 2000 panel - Serum or Plasm a glucose [mass/volume ] in serum or plasma 90 text: 70 - 99 mg/dL GLUCO SE 90 70 - 99 MG/DL 01/26 12:[address] [facility] Not Available Not Available 06/27/2024 05:12:53 01/27/20 23 01/26/2023 Basic metab olic 1999 panel - Serum or Plasm a urea nitrogen [mass/volume ] in serum or plasma 16 text: 7 - 18 mg/dL BUN 16 7 - 18 MG/DL 01/26 12:[address] [facility] Not Available Not Available 06/27/2024 05:12:53 01/27/2001/26/2023 Basic metab olic 1999 panel - Serum or Plasm a creatinine [mass/volume ] in serum or plasma 0.8 text: 0.55 - 1.02 mg/dL CREAT ININE S/P/B 0.80 0.55 - 1.02 MG/DL 01/26 12:[address] [facility] Not Available Not Available 06/27/2024 05:12:53 01/27/2001/26/2023 Basic metab olic 1999 panel - Serum or Plasm a sodium [moles/volum e] in serum or plasma 140 text: 136 - 145 mmol/L SODIU M S/P/B 140 136 - 145 MMOL/ L 01/26 12:[address] [facility] Not Available Not Available 06/27/2024 05:12:53 01/27/2001/26/2023 Basic metab olic 1999 panel - Serum or Plasm a potassium [moles/volum e] in serum or plasma 4.4 text: 3.5 - 5.1 mmol/L POTAS SIUM S/P/B 4.4 3.5 - 5.1 MMOL/ L 01/26 12:[address] [facility] Not Available Not Available 06/27/2024 05:12:53 01/27/2001/26/2023 Basic metab olic 2000 panel - Serum or Plasm a chloride [moles/volum e] in serum or plasma 107 text: 100 - 108 mmol/L CHLOR ABHIJEET S/P/B 107 100 - 108 MMOL/ L 01/26 12:[address] [facility] Not Available Not Available 06/27/2024 05:12:53 01/27/2001/26/2023 Basic metab olic 1999 panel - Serum or Plasm a carbon dioxide, total [moles/volum e] in serum or plasma 28.1 text: 21 - 32 mmol/L CO2 28.1 21 - 32 MMOL/ L 01/26 12:[address] [facility] Not Available Not Available 06/27/2024 05:12:53 01/27/20 23 01/26/2023 Basic metab olic 1999 panel - Serum or Plasm a calcium [mass/volume ] in serum or plasma 9 text: 8.5 - 10.1 mg/dL CALCI UM S/P/B 9.0 8.5 - 10.1 MG/DL 01/26 12:[address] [facility] Not Available Not Available 06/27/2024 05:12:53 01/27/2001/26/2023 Basic metab olic 1999 panel - Serum or Plasm a anion gap in serum or plasma 4.9 text: 5 - 15 mmol/L low ANION GAP 4.9 (L) 5 - 15 MMOL/ L 01/26 12:[address] [facility] Not Available Not Available 06/27/2024 05:12:53 01/27/2001/26/2023 Basic metab olic 1999 panel - Serum or Plasm a urea nitrogen/cre atinine [mass ratio] in serum or plasma 20.1 low: 6high: 26 BUN CREAT ININE RATIO 20.1 6 - 26 01/26 12:[address] [facility] Not Available Not Available 06/27/2024 05:12:53 01/27/20 23 01/26/2023 Basic metab olic 2000 panel - Serum or Plasm a glomerular filtration rate/1.73 sq M.predicted [volume rate/area] in serum, plasma or blood by creatinine-b ased formula (CKD-epi 2020) 87 text: >90 mL/min /1.73 M2 low GFR ESTIM ATE 87 (L) >90 ML/IN N/1.7 3 M2 01/26 12:[address] [facility] Not Available Not Available 06/27/2024 05:12:53 01/27/20 23 01/26/2023 Basic metab olic 2000 panel - Serum or Plasm a interpretati on and review of laboratory results Abnorm al Not Available Not Available 05:12:53 01/27/2001/26/2023 CBC W Auto Diffe renti al panel - Blood leukocytes [#/volume] in blood by automated count 10.2 text: 4.5 - 11.0 x10'3/ uL WBC 10.2 4.5 - 11.0 x10'3 /uL 01/26 12:[address] [facility] Not Available Not Available 06/27/2024 05:12:52 01/27/2001/26/2023 CBC W Auto Diffe renti al panel - Blood erythrocytes [#/volume] in blood by automated count 4.7 text: 4.20 - 5.40 x10'6/ uL RBC 4.70 4.20 - 5.40 x10'6 /uL 01/26 12:[address] [facility] Not Available Not Available 06/27/2024 05:12:52 01/27/2001/26/2023 CBC W Auto Diffe renti al panel - Blood hemoglobin [mass/volume ] in blood 11.9 text: 12.0 - 16.0 g/dL low HGB 11.9 (L) 12.0 - 16.0 G/DL 01/26 12:[address] [facility] Not Available Not Available 06/27/2024 05:12:52 01/27/20 23 01/26/2023 CBC W Auto Diffe renti al panel - Blood hematocrit [volume fraction] of blood 39.3 % low: 38%hig h: 48% HCT 39.3 38.0 - 48.0 % 01/26 12:[address] [facility] Not Available Not Available 06/27/2024 05:12:52 01/27/20 23 01/26/2023 CBC W Auto Diffe renti al panel - Blood MCV [entitic volume] 83.6 text: 81.0 - 99.0 fL MCV 83.6 81.0 - 99.0 FL 01/26 12:[address] [facility] Not Available Not Available 06/27/2024 05:12:52 01/27/20 23 01/26/2023 CBC W Auto Diffe renti al panel - Blood MCH [entitic mass] 25.3 pg low: 27pghi gh: 31pg low MCH 25.3 (L) 27.0 - 31.0 PG 01/26 12:[address] [facility] Not Available Not Available 06/27/2024 05:12:52 01/27/2001/26/2023 CBC W Auto Diffe renti al panel - Blood MCHC [mass/volume ] 30.3 text: 32.0 - 36.0 g/dL low MCHC 30.3 (L) 32.0 - 36.0 G/DL 01/26 12:[address] [facility] Not Available Not Available 06/27/2024 05:12:52 01/27/2001/26/2023 CBC W Auto Diffe renti al panel - Blood erythrocyte distribution width [entitic volume] by automated count 16 % low: 11.5%h igh: 14.5% high RDW 16.0 (H) 11.5 - 14.5 % 01/26 12:[address] [facility] Not Available Not Available 06/27/2024 05:12:52 01/27/20 23 01/26/2023 CBC W Auto Diffe renti al panel - Blood platelets [#/volume] in blood 382 text: 130 - 400 x10'3/ uL PLT 382 130 - 400 x10'3 /uL 01/26 12:[address] [facility] Not Available Not Available 06/27/2024 05:12:52 01/27/20 23 01/26/2023 CBC W Auto Diffe renti al panel - Blood platelet mean volume [entitic volume] in blood 10.8 text: 9.3 - 12.2 fL MPV 10.8 9.3 - 12.2 FL 01/26 12:[address] [facility] Not Available Not Available 06/27/2024 05:12:52 01/27/20 23 01/26/2023 CBC W Auto Diffe renti al panel - Blood differential cell count method - blood AUTOMA ALYSSA DIFFER ENTIAL DIFFE RENTI AL TYPE AUTOM ATED DIFFE RENTI AL 01/26 12:[address] [facility] Not Available Not Available 06/27/2024 05:12:52 01/27/20 23 01/26/2023 CBC W Auto Diffe renti al panel - Blood neutrophils/ 100 leukocytes in blood by automated count 68.3 % NEUTR OPHIL S 68.3 % 01/26 12:[address] [facility] Not Available Not Available 06/27/2024 05:12:52 01/27/20 23 01/26/2023 CBC W Auto Diffe renti al panel - Blood lymphocytes/ 100 leukocytes in blood by automated count 19.5 % LYMPH OCYTE S 19.5 % 01/26 12:[address] [facility] Not Available Not Available 06/27/2024 05:12:52 01/27/20 23 01/26/2023 CBC W Auto Diffe renti al panel - Blood monocytes/10 0 leukocytes in blood by automated count 8.6 % MONOC YTES 8.6 % 01/26 12:[address] [facility] Not Available Not Available 06/27/2024 05:12:52 01/27/20 23 01/26/2023 CBC W Auto Diffe renti al panel - Blood eosinophils/ 100 leukocytes in blood by automated count 2.5 % EOSIN OPHIL S 2.5 % 01/26 12:[address] [facility] Not Available Not Available 06/27/2024 05:12:52 01/27/20 23 01/26/2023 CBC W Auto Diffe renti al panel - Blood basophils/10 0 leukocytes in blood by automated count 0.8 % BASOP HILS 0.8 % 01/26 12:[address] [facility] Not Available Not Available 06/27/2024 05:12:52 01/27/2001/26/2023 CBC W Auto Diffe renti al panel - Blood immature granulocytes /100 leukocytes in blood by automated count 0.3 % IMMAT URE GRANS 0.3 % 01/26 12:[address] [facility] Not Available Not Available 06/27/2024 05:12:52 01/27/20 23 01/26/2023 CBC W Auto Diffe renti al panel - Blood neutrophils [#/volume] in blood 6.98 text: 1.80 - 7.70 x10'3/ uL ABS. NEUTR OPHIL S TOTAL 6.98 1.80 - 7.70 x10'3 /uL 01/26 12:[address] [facility] Not Available Not Available 06/27/2024 05:12:52 01/27/2001/26/2023 CBC W Auto Diffe renti al panel - Blood lymphocytes [#/volume] in blood 1.99 text: 1.00 - 4.80 x10'3/ uL ABS. LYMPH OCYTE S 1.99 1.00 - 4.80 x10'3 /uL 01/26 12:[address] [facility] Not Available Not Available 06/27/2024 05:12:52 01/27/20 23 01/26/2023 CBC W Auto Diffe renti al panel - Blood monocytes [#/volume] in blood 0.88 text: 0.24 - 0.86 x10'3/ uL high ABS. MONOC YTES 0.88 (H) 0.24 - 0.86 x10'3 /uL 01/26 12:[address] [facility] Not Available Not Available 06/27/2024 05:12:52 01/27/20 23 01/26/2023 CBC W Auto Diffe renti al panel - Blood eosinophils [#/volume] in blood 0.26 text: 0.04 - 0.36 x10'3/ uL ABS. EOSIN OPHIL S 0.26 0.04 - 0.36 x10'3 /uL 01/26 12:[address] [facility] Not Available Not Available 06/27/2024 05:12:52 01/27/20 23 01/26/2023 CBC W Auto Diffe renti al panel - Blood basophils [#/volume] in blood 0.08 text: 0.01 - 0.08 x10'3/ uL ABS. BASOP HILS 0.08 0.01 - 0.08 x10'3 /uL 01/26 12:[address] [facility] Not Available Not Available 06/27/2024 05:12:52 01/27/2001/26/2023 CBC W Auto Diffe renti al panel - Blood immature granulocytes [#/volume] in blood 0.03 text: 0.00 - 0.49 x10'3/ uL ABS. IMMAT URE GRANU LOCYT ES 0.03 0.00 - 0.49 x10'3 /uL 01/26 12:[address] [facility] Not Available Not Available 06/27/2024 05:12:52 01/27/2001/26/2023 CBC W Auto Diffe renti al panel - Blood interpretati on and review of laboratory results Abnorm al Not Available Not Available 05:12:52 08/06/19 24 08/15/2023 COMPL IANCE DRUG OLAMIDE SIS, UR summary report (summary) FINAL ===== ===== ===== ===== ===== ===== ===== ===== ===== ===== ===== ===== ===== === TOXAS SURE COMP DRUG OLAMIDE SIS,U R ===== ===== ===== ===== ===== ===== ===== ===== ===== ===== ===== ===== ===== === Test Resul t Flag Units Drug Prese nt N-Efrain methy ltram adol 260 ng/mg creat N-efrain methy ltram adol is an expec alyssa metab olite of trama dol. Sourc e of trama dol is a presc ripti on medic ation . Atomo xetin e PRESE NT Gabap entin PRESE NT Baclo fen PRESE NT Bupro pion PRESE NT Sibley xybup ropio n PRESE NT Sibley xybup ropio n is an expec alyssa metab olite of bupro pion. Aceta minop hen PRESE NT Diphe nhydr amine PRESE NT Dextr ometh orpha n PRESE NT Dextr orpha n/Lev orpha nol PRESE NT Dextr orpha n is an expec alyssa metab olite of dextr ometh orpha n, an over- the-c ounte r or presc ripti on cough suppr essan t. Dextr orpha n canno t be disti nguis hed from the sched uled presc ripti on medic ation levor phano l by the metho d used for olamide sis. Guaif enesi n PRESE NT Guaif enesi n may be admin ister ed as an over- the-c ounte r or presc ripti on drug; it may also be prese nt as a break down produ ct of metho carba mol. ===== ===== ===== ===== ===== ===== ===== ===== ===== ===== ===== ===== ===== === Test Resul t Flag Units Ref Range Creat inine 183 mg/dL >=20 ===== ===== ===== ===== ===== ===== ===== ===== ===== ===== ===== ===== ===== === Decla red Medic ation s: Medic ation list was not provi ded. ===== ===== ===== ===== ===== ===== ===== ===== ===== ===== ===== ===== ===== === For clini augustina consu ltati on, pleas e call [phone]. ===== ===== ===== ===== ===== ===== ===== ===== ===== ===== ===== ===== ===== === Not Available [facility] ([facility]) [address], [place], [address], 08/15/2023 15:07:49 08/06/19 24 08/15/2023 COMPL IANCE DRUG OLAMIDE SIS, UR pdf . Not Available [facility] ([facility]) [address], [place], [address], 08/15/2023 15:07:49 12/13/19 23 12/10/2022 XR, shoul heriberto, 2 or more view No observ ation record ed. [facility] [address] [place], [address], 12/14/2022 11:23:38 01/26/20 23 DEXA, axial skele ton + verte bral fract ure asses sment No observ ation record ed. [facility] Not Available 2022 11:39:58 03/03/20 23 03/03/2023 MAMMO , scree drew, bilat eral No observ ation record ed. [facility] [address], [place], [address], 03/07/2023 09:00:07 05/15/19 24 05/15/2023 XR, lumba r spine No observ ation record ed. [address], [place], [address], 05/18/2023 10:38:10 08/22/19 24 08/21/2023 XR, lumba r spine No observ ation record ed. [address], [place], [address], 08/24/2023 16:06:49 Result Notes None recorded. Problems Name Problem SNOMED Code Status Onset Date Resolution Date Notes Provider Name and Address Organization Details Recorded Time Fit and well 319938741 Completed 04/10/2021 SUNNI BRAND Attn: Accounting ,[address] [place], [address] , [place] [facility] 09:46:37 Obesity 330418024 Active Not Available [facility] 3 01:28:10 Sinusitis 69580257 Completed 201504/10/2021 SUNNI BRAND Attn: Accounting ,[address] [place], [address] , [place] [facility] 1 10:04:40 Knee pain Active 2015 Not Available [facility] 3 01:28:10 Pre-surger y evaluation Completed 201504/10/2021 SUNNI BRAND Attn: Accounting ,[address] [place], [address] , [place] [facility] 1 09:46:34 Metabolic syndrome X 306355556 Active 2016 Not Available [facility] 3 01:28:10 Menopausal syndrome 814020044 Completed 201604/10/2021 SUNNI BRAND Attn: Accounting ,[address] [facility], [place], [address] , [facility] - [facility] 1 09:46:31 Bobby s 36644173 Completed 201604/10/2021 SUNNI BRAND Attn: Accounting ,[address] [facility], [place], [address] , [place] [facility] 1 09:46:16 Anxiety 03840793 Active 2016 Not Available [facility] 3 01:28:10 Headache 01562829 Completed 201604/10/2021 SUNNI BRAND Attn: Accounting ,[address] [facility], [place], [address] , [facility] - [facility] 1 09:46:20 Depressive disorder 84865026 Active 2016 Not Available [facility] 3 01:28:10 Vaginal discharge 568645234 Completed 201604/10/2021 SUNNI BRAND Attn: Accounting ,[address] [place], [address] , [facility] - [facility] 1 09:46:28 Adult attention deficit hyperactiv ity disorder 753751994 Active 2020 Not Available [facility] 3 01:28:10 Chronic low back pain 146776384 Active 2021 Not Available [facility] 3 01:28:10 Osteoarthr itis of glenohumer al joint 436067925 Active 2022 Not Available [facility] 3 01:28:10 Osteopenia 294932574 Active 2022 Not Available [facility] 3 01:28:10 Problem Notes None recorded. Procedures Surgical History Date Name Laterality Status Provider Name and Address Organization Details Recorded Time 02/12/20 20 Most Recent Mammogram completed Mable Braswell [place] - [facility] 02/13/2020 08:34:32 12/19/19 20 Total knee arthroplasty completed Bruce Araiza LPN [facility] 08/14/2020 15:12:28 10/19/19 18 Date of Last Pap Smear completed Mable Boylencer [facility] 11/09/2019 16:23:30 04/07/20 16 Knee arthroscopy/surg emily completed Flores Almaguer RN [facility] 05/28/2016 15:41:40 04/19/19 12 Partial hysterectomy completed Flores Almaguer RN [facility] 05/28/2016 15:44:28 Imaging Results None recorded. Procedure Notes None recorded. Medical Equipment None Reported. Allergies No known drug allergies Medications Name Sig Start Date Stop Date Status Note LastModified by Organization Details LastModified Time celecoxib 200 mg capsule 02/23 completed Not Available Not Available Not Available cyclobenzap rine 10 mg tablet Take 1 tablet 3 times a day by oral route as needed for 30 days, for left shoulder pain. 2023 active Not Available Not Available Not Avai lable nystatin 100,000 unit/mL oral suspension SWISH 5 ML IN MOUTH AND SWALLOW 4 TIMES DAILY 06/27 completed Not Available Not Available Not Available prednisone 10 mg tablet TAKE 6 TABLETS BY MOUTH TODAY, 5 TABS TOMORROW, THEN DECREASE BY 1 TAB DAILY. TAKE WITH FOOD 06/27 completed Not Available Not Available Not Available doxycycline hyclate 100 mg capsule 02/23 completed Not Available Not Available Not Available azithromyci n 250 mg tablet TAKE 2 TABLETS BY MOUTH ON DAY 1, AND THEN TAKE 1 TABLET BY MOUTH ONCE A DAY ON DAY 2 THROUGH DAY 5 12/08 completed Not Available Not Available Not Available fluconazole 150 mg tablet TAKE 1 TABLET BY MOUTH ONCE DAILY IN THE MORNING FOR 7 DAYS active Not Available Not Available No t Available benzonatate 200 mg capsule TAKE 1 CAPSULE BY MOUTH THREE TIMES DAILY NEEDED 06/27 completed Not Available Not Available Not Available hydrocodone 5 mg-acetamin ophen 325 mg tablet TAKE 1 TABLET BY MOUTH EVERY 6 HOURS 08/05 completed Not Available Not Available Not Available meloxicam 15 mg tablet TAKE 1 TABLET BY MOUTH ONCE DAILY NEEDED 08/12 completed Not Available Not Available Not Available prednisone 20 mg tablet TAKE 2 TABLETS BY MOUTH FOR 3 DAYS, THEN TAKE 1 TABLET FOR 7 DAYS. 06/27 completed Not Available Not Available Not Available prednisone 5 mg tablet Take 1 tablet every day by oral route for 10 days. 11/08 completed Not Available Not Available Not Available hydroxocoba alea 1,000 mcg/mL intramuscul ar solution Inject 1 mL every month by intramusc ular route for 30 days. 02/23 completed Not Available Not Available Not Available topiramate 25 mg tablet Take 1 tablet every day by oral route for 90 days. 02/23 completed Not Available Not Available Not Available phentermine 37.5 mg tablet TAKE ONE TABLET BY MOUTH ONCE DAILY 02/23 completed Not Available Not Available Not Available tramadol 50 mg tablet TAKE 1 TABLET BY MOUTH THREE TIMES DAILY NEEDED active Not Available Not Available No t Available triamcinolo ne acetonide 0.1 % topical cream APPLY A THIN LAYER TO THE AFFECTED AREA(S) TWO TIMES DAILY 09/08 completed prn Not Available Not Available Not Available alprazolam 0.25 mg tablet Take 1 tablet 3 times a day by oral route as needed for 90 days. 02/23 completed Not Available Not Available Not Available estradiol 1 mg tablet TAKE 1 TABLET BY MOUTH TWICE DAILY active Not Available Not Available No t Available dextroamphe tamine-amph etamine ER 20 mg 24hr capsule,ext end release Take 1 capsule every day by oral route in the morning for 30 days. 01/25 completed Not Available Not Available Not Available imiquimod 5 % topical cream packet 03/02 completed Not Available Not Available Not Available baclofen 10 mg tablet TAKE 1 TABLET BY MOUTH THREE TIMES DAILY NEEDED 08/05 completed Not Available Not Available Not Available benzonatate 100 mg capsule TAKE 1 CAPSULE BY MOUTH THREE TIMES DAILY NEEDED FOR COUGH 08/12 completed Not Available Not Available Not Available hydrocodone 7.5 mg-acetamin ophen 325 mg tablet TAKE 1 TO 2 TABLETS BY MOUTH EVERY 6 HOURS NEEDED FOR PAIN 08/14 completed Not Available Not Available Not Available cephalexin 500 mg capsule Take 1 capsule 3 times a day by oral route for 10 days. 07/09 completed Not Available Not Available Not Available cyanocobala min (vit B-12) 1,000 mcg/mL injection solution Inject 1 mL every month by intramusc ular route. 02/23 completed Not Available Not Available Not Available pyridoxine (vitamin B6) 100 mg/mL injection solution Take 1 mL every month by injection route for 30 days. 02/23 completed Not Available Not Available Not Available progesteron e micronized 200 mg capsule TAKE 1 CAPSULE BY MOUTH EVERY DAY AT BEDTIME active Not Available Not Available No t Available gabapentin 300 mg capsule TAKE 1 CAPSULE BY MOUTH THREE TIMES DAILY NEEDED 08/05 completed Not Available Not Available Not Available Adderall XR 10 mg capsule,ext ended release TAKE 1 CAPSULE BY MOUTH ONCE DAILY DIRECTED FOR 30 DAYS 11/08 completed Not Available Not Available Not Available diclofenac sodium 75 mg tablet,tab yed release TAKE 1 TABLET BY MOUTH TWICE DAILY 08/14 completed Not Available Not Available Not Available gabapentin 100 mg capsule TAKE 1 CAPSULE BY MOUTH THREE TIMES DAILY NEEDED 01/25 completed Not Available Not Available Not Available estradiol 0.5 mg tablet Take 1 tablet every day by oral route for 90 days. 02/23 completed Not Available Not Available Not Available zolpidem 10 mg tablet TAKE 1 TABLET BY MOUTH ONCE DAILY 08/14 completed Not Available Not Available Not Available methylpredn isolone 4 mg tablets in a dose pack TAKE BY MOUTH DIRECTED ON INSIDE OF PACKAGE 12/08 completed Not Available Not Available Not Available albuterol sulfate HFA 90 mcg/actuati on aerosol inhaler INHALE 2 PUFFS BY MOUTH 4 TIMES DAILY NEEDED FOR COUGH active Not Available Not Available No t Available celecoxib 100 mg capsule TAKE 1 CAPSULE BY MOUTH ONCE DAILY NEEDED active Not Available Not Available No t Available escitalopra m 10 mg tablet Take 1 tablet every day by oral route for 90 days. 02/23 completed Not Available Not Available Not Available atomoxetine 40 mg capsule TAKE 1 CAPSULE BY MOUTH ONCE DAILY IN THE MORNING active Not Available Not Available No t Available bupropion HCl XL 300 mg 24 hr tablet, extended release TAKE 1 TABLET BY MOUTH ONCE DAILY IN THE MORNING active Not Available Not Available No t Available bupropion HCl XL 150 mg 24 hr tablet, extended release TAKE 1 TABLET BY MOUTH IN THE MORNING ALONG WITH 3O0MG TAB 08/08 /2024 completed Not Available Not Available Not Available Vimovo 500 mg-20 mg tablet,imme diate and delay release Take 1 tablet twice a day by oral route for 30 days. 06/22 completed Not Available Not Available Not Available Suprep Bowel Prep Kit 17.5 gram-3.13 gram-1.6 gram oral solution 02/23 completed Not Available Not Available Not Available Xarelto 10 mg tablet TAKE 1 TABLET BY MOUTH ONCE DAILY 08/14 completed Not Available Not Available Not Available bupropion HCl XL 450 mg 24 hr tablet, extended release Take 1 tablet every day by oral route in the morning for 30 days. 09/11 completed Not Available Not Available Not Available Ozempic 0.25 mg or 0.5 mg (2 mg/1.5 mL) subcutaneou s pen injector Inject 0.25 mg every week by subcutane ous route as directed for 30 days. 2024 active Not Available Not Available Not Avai lable Caryn 0.1 mg/24 hr transdermal patch APPLY 1 PATCH TOPICALLY TWICE A WEEK 06/27 completed Not Available Not Available Not Available Caryn 0.075 mg/24 hr transdermal patch APPLY 1 PATCH TOPICALLY TWICE A WEEK FOR 28 DAYS 06/27 completed Not Available Not Available Not Available tramadol 100 mg tablet Take 1 tablet every 12 hours by oral route as needed for 30 days, for pain. 01/06 completed Not Available Not Available Not Available Ozempic 0.25 mg or 0.5 mg (2 mg/3 mL) subcutaneou s pen injector INJECT 0.25MG SUBCUTANE OUSLY ONCE A WEEK DIRECTED active Not Available Not Available No t Available Vitals Date Recorded Body height Body mass index (BMI) Body weight Oxygen saturation Oxygen saturation in Arterial blood by Pulse oximetry Heart rate Respiratory rate Systolic And Diastolic Provider Name and Address Organization Details Last Updated DateTime 5 157.48 cm 36.9 kg/m2 17350.6 6 g 97 % 97 % 94 /min 16 /min 105/77 mm[Hg] Zayra Mcneil [place] - [facility] 5 16:28:36 Date Recorded Oxygen saturation Oxygen saturation in Arterial blood by Pulse oximetry Respiratory rate Provider Name and Address Organization Details Last Updated DateTime 08/06/2023 98 % 98 % 18 /min SUNNI BRAND Attn: Accounting ,[address] [facility], [place], [address] , [facility] 08/08/2023 14:47:10 Date Recorded Body height Body mass index (BMI) Body weight Heart rate Systolic And Diastolic Provider Name and Address Organization Details Last Updated DateTime 08/06/2023 157.48 cm 36.8 kg/m2 46335.07 g 81 /min 118/82 mm[Hg] Shantell Irvin MA [facility] 08/06/2023 12:02:21 Date Recorded Body height Body mass index (BMI) Body weight Respiratory rate Body temperature Oxygen saturation Oxygen saturation in Arterial blood by Pulse oximetry Heart rate Systolic And Diastolic Provider Name and Address Organization Details Last Updated DateTime 157.48 cm 42.2 kg/m2 157423. 05 g 16 /min 97.6 [degF] 98 % 98 % 92 /min 126/84 mm[Hg] Zayra Mcneil MA [facility] 10:58:38 Date Recorded Body height Body mass index (BMI) Body weight Oxygen saturation Oxygen saturation in Arterial blood by Pulse oximetry Heart rate Respiratory rate Systolic And Diastolic Provider Name and Address Organization Details Last Updated DateTime 3 157.48 cm 39.2 kg/m2 74647.5 7 g 96 % 96 % 94 /min 16 /min 126/82 mm[Hg] Zayra Mcneil MA [facility] 14:53:29 Social History Question Answer Notes LastModified by Organizat ion Details LastModified Time Tobacco Smoking Status Former Smoker quti 2011, 04/20 ppd SUNNI BRAND Attn: Accounting,[address] [place], [address] 08/06/2023 12:39:40 Do You Have An Advance Directive? No Information not available 05/28/2016 Are You Blind Or Do You Have Difficulty Seeing? No Information not available 09/08/2021 What Is Your Level Of Caffeine Consumption? Moderate Information not available 09/08/2021 How Much Tobacco Do You Chew? None Information not available 05/28/2016 In The 14 Days Before Symptom Onset, Have You Had Close Contact With A Laboratory-confir med COVID-19 While That Case Was Ill? No Information not available 09/08/2021 In The 14 Days Before Symptom Onset, Have You Had Close Contact With A Person Who Is Under Investigation For COVID-19 While That Person Was Ill? No Information not available 09/08/2021 Have You Been To An Area Known To Be High Risk For COVID-19? No Information not available 09/08/2021 Are You Deaf Or Do You Have Serious Difficulty Hearing? No Information not available 09/08/2021 What Type Of Diet Are You Following? REGULAR Information not available 09/08/2021 Which Illicit Or Recreational Drugs Have You Used? None Information not available 05/28/2016 Education 2 Year College Information not available 05/28/2016 Are There Any Guns Present In Your Home? No Information not available 05/28/2016 Hard Of Hearing Or Deaf In One Or Both Ears? No Information not available 05/28/2016 Legally Blind In One Or Both Eyes? No Wears Contacts Information not available 05/28/2016 Marital Status Informatio n not available 05/28/2016 What Was The Date Of Your Most Recent Tobacco Screening? 06/27/2024 [email or web address] Information not available 06/27/2024 What Is Your Current Pack Years? 10packyears Information not available 08/06/2023 Performs Monthly Self-breast Exam? No Information no t available 05/28/2016 What Is Your Relationship Status? Information not available 09/08/2021 Do You Use Your Seat Belt Or Car Seat Routinely? Yes Information not available 09/08/2021 Seat Belts Used Routinely Yes Information not available 05/28/2016 Smoke Alarm In Home Yes Information not available 05/28/2016 Do You Have Smoke And Carbon Monoxide Detectors In Your Home? Yes Information not available 09/08/2021 Are You Passively Exposed To Smoke? Yes Information no t available 09/08/2021 How Much Tobacco Do You Smoke? No Information not available 05/28/2016 General Stress Level Low Information not available 05/28/2016 Do You Use Sunscreen Routinely? Yes Information not available 09/08/2021 Has Tobacco Cessation Counseling Been Provided? Yes Information not available 08/12/2022 On What Date Was Tobacco Cessation Counseling Provided? 06/27/2024 Information not available 06/27/2024 How Many Years Have You Smoked Tobacco? 10 Information not available 08/06/2023 Sex: Female Functional Status Question Answer Note LastModified by Organizat ion Details LastModified Time Do you use any illicit or recreational drugs? No Information not available 09/08/2021 Do you or have you ever used any other forms of tobacco or nicotine? No Information not available 09/08/2021 What is your level of alcohol consumption? Occasional Information not available 05/28/2016 Do you or have you ever used smokeless tobacco? Never used smokeless tobacco Information not available 11/09/2019 Are you currently employed? Yes Information not available 09/08/2021 Are you able to care for yourself independently? 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 Never used electronic cigarettes Information not available 11/09/2019 What is your exercise level? None Information not available 05/28/2016 Mental Status Question Answer Note LastModified by Organization D etails LastModified Time Do you feel stressed (tense, restless, nervous, or anxious, or unable to sleep at night)? [id number] Information not available 09/08/2021 Family History Nothing Reported. Medical History Condition Response Coronary Artery Disease N Other N High Blood Pressure N Atrial Fibrillation N Thyroid Problems N Kidney or Bladder Problems N GI Problems N Depression Y COPD N Blood Clots N Skin Problems N Eating Disorder N Anemia N Heart Attack ([place]) N Anxiety Disorder N Diabetes N Muscle, Joint, or Bone Problems N Seizures/Epilepsy N Acid Reflux (GERD) N Cancer N Stroke N Asthma N Allergies N ADHD N Substance Abuse N High Cholesterol N Hepatitis N Liver Disease N Schizophrenia N Headaches N Heart Failure N Osteoporosis Y Gynecological History Statement/Question Response Date of Last Pap Smear 10/18/2017 Current Control Method Hysterectom y Most Recent Mammogram 02/12/2020 Obstetrics History GPAL:G 4 P 1 0 3 1 Type Value Multiple Births 0 Full Term 1 Induced 0 Spontaneous 3 Premature 0 Living 1 Ectopics 0 Total 4 Immunizations Vaccine Type Date Status Note Provider Nam e and Address Organization Details Recorded Time COVID-19, mRNA, LNP-S, PF, 30 mcg/0.3 mL dose 05/02/2021 completed Not Available [facility] 3 03:40:00 COVID-19, mRNA, LNP-S, PF, 30 mcg/0.3 mL dose 05/23/2021 completed Not Available [facility] 3 03:40:00 Tdap 12/18/2015 completed Not Available [facility] 02/06/2023 03:40:00 Hep B, adult 12/18/2015 completed Not Available [facility] 02/06/2023 03:40:00 Hep B, adult 01/21/2016 completed Not Available [facility] 02/06/2023 03:40:00 Hep B, adult 07/09/2016 completed Not Available [facility] 02/06/2023 03:40:00 Past Encounters Encounter ID Performer Location Encounter Start Date Encounter Closed Date Diagnosis/Indication Diagnosis SNOMED-CT Code Diagnosis ICD10 Code Diagnosis Note [id number] DAVE Echeverria [address] [place] [address] 01/27/2016 16:35:02 01/27/2016 16:45:03 Obesity 306359714 E66.9 [id number] MD Rohan Davis [address] [place] [id number] 03/27/2016 15:23:05 03/27/2016 15:34:27 Knee pain 26758675 M25.569 Pre-surger y evaluation 157102875 Z01.022 [id number] MD Rohan Davis [address] [place] [address] 05/28/2016 15:28:02 05/28/2016 16:14:04 Metabolic syndrome X 118501720 E88.81 Obesity 426919256 E66.9 [id number] MD Rohan Davis [address] [place] [address] 05/29/2016 08:55:12 05/29/2016 09:30:26 [id number] MD Rohan Davis [address] [place] [address] 10/16/2016 12:16:12 10/16/2016 15:06:39 Menopausal syndrome 799059256 N95.9 Depressive disorder 3548 9007 F32.2 [id number] MD Rohan Riggins [address] [place] [address] 12/11/2016 09:40:52 12/11/2016 10:44:58 Shoulder joint pain 932913746 M25.460 [id number] MD Rohan Riggins [address] [place] [address] 12/18/2016 14:09:38 12/18/2016 14:42:15 Anemia 063682242 D64.9 [id number] MD Rohan Burnett [address] [place] [address] 02/23/2018 15:47:46 03/01/2018 10:34:18 Adult health examination 696303988 Z00.00 02/23/18 here to establish care and refill medication . Had hysterecto my r/t multiple fibroids, mammogram in January,, colonoscop y February 2017 and they said it was normal, had an EGD at the same time and it was normal as well. Had labs this spring and states they were all normal. States she is doing Weight Watchers and Plexus supplement s and it has reduced her inflammati on and arthritis pain and she has stopped taking NSAIDs which has stopped her acid reflux as well. RTC in 1 year for well visit or sooner if any concerns. Depressive disorder 3548 9007 F32.9 02/23/18 here to establish care and refill medication . States she has tried a few different times to get off of the bupropion and goes right back into horrible depression . Has been on this for several years. Will refill at current dose. RTC in year for recheck or sooner if any concerns. [id number] MD Rohan Burnett [address] [place] [address] 09/19/2018 15:59:45 09/21/2018 12:55:33 Acute low back pain [id number] M54.5 09/19/18 c/o low back pain shooting down the right with numbness to the toes. Will have shooting type pain down the back of the right leg. Denies any injury. States has been dealing with this for about 2 months and going to the chiropract or and massage therapist. Will have relief for about 3 days and then it comes right back. Requesting a refill of tramadol to help with this and states she only takes 1 every 3-4 days as needed. Will comply and start on meloxicam and baclofen while going to physical therapy. RTC in 4-8 weeks for recheck or sooner if any concerns. [id number] MD Rohan Burnett [address] [place] [address] 03/02/2019 15:33:20 03/02/2019 16:17:06 Lateral epicondylitis of right humerus [id number] 29396 M77.11 03/02/19 c/o pain to the lateral right elbow with weakness of right hand grasp off and on x 2 months and worsening. Denies any injury. Tenderness to the right lateral epicondyle . Discussed likely epicondyli tis and can treat with anti inflammato supriya and a brace. States she has a brace at home with the gel pad. Apply ice/heat off and on for the next 1-2 weeks to help reduce the inflammati on. RTC in 4-6 weeks if no improvemen t or sooner if any worsening. Localized, primary osteoarthritis of the shoulder region 630043126 M19.019 09/19/18 c/o low back pain shooting down the right with numbness to the toes. Will have shooting type pain down the back of the right leg. Denies any injury. States has been dealing with this for about 2 months and going to the chiropract or and massage therapist. Will have relief for about 3 days and then it comes right back. Requesting a refill of tramadol to help with this and states she only takes 1 every 3-4 days as needed. Will comply and start on meloxicam and baclofen while going to physical therapy. RTC in 4-8 weeks for recheck or sooner if any concerns. 03/02/19 c/o right shoulder pain increasing and occasional ly locking. States had an MRI and was told by Dr. Woodward at [facility] that she had no cartilage left and had a bone spur but she was too young for a shoulder replacemen t. Full ROM, negative empty can, belly press, lift off exams. Discussed lets increase meloxicam to daily for the next month or so to see if this decreases the pain. Depressive disorder 3548 9007 F32.9 02/23/18 here to establish care and refill medication . States she has tried a few different times to get off of the bupropion and goes right back into horrible depression . Has been on this for several years. Will refill at current dose. RTC in year for recheck or sooner if any concerns. 03/02/19 here for f/u of depression . States she feels well controlled on the wellbutrin and would like to continue this if possible. Will refill as requested. rTC in 1 year for f/u or sooner if any worsening or concerns. Influenza vaccination declined 089810398 Z28.21 [id number] MD Rohan Burnett [facility] [address] [place] [address] 11/09/2019 15:35:48 11/09/2019 16:50:49 Pre-surgery evaluation [id number] Z01.818 11/09/2019 Here for pre-surgic al clearance for total knee replacemen t on the left knee on December 04. Fax chart to Dr. Zamraripa at [facility]. Exam is good and without any concerning findings. Will draw labs and go from there. 11/10/2019 labs back and normal. Cleared for total knee on 12/05/2019. Thyroid di sorder screening 433718687 Z13.29 Mixed hyperlipidemia 267 073542 E78.2 Low back pain 627141218 M54.5 09/19/18 c/o low back pain shooting down the right with numbness to the toes. Will have shooting type pain down the back of the right leg. Denies any injury. States has been dealing with this for about 2 months and going to the chiropract or and massage therapist. Will have relief for about 3 days and then it comes right back. Requesting a refill of tramadol to help with this and states she only takes 1 every 3-4 days as needed. Will comply and start on meloxicam and baclofen while going to physical therapy. RTC in 4-8 weeks for recheck or sooner if any concerns. 11/09/2019 c/o low back pain that has increased recently and cannot seem to work it out. Requesting physical therapy for this. Agree and will order physical therapy as requested. 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 Will have shooting type pain down the back of the right leg. Denies any injury. RTC in 4-8 weeks for recheck or sooner if any concerns. trial meloxicam, baclofen, tramadol, PT referral, massage therapist and chiropract or went to PT October 2019 Localized, primary osteoarthritis of the shoulder region 300820353 M19.019 MRI shoulder Nov 2016 severe osteoarthr itic changes, joint effusion, small full thickness tear within the supraspina tus tendon, glenoid labrum is mostly absent secondary to degenerati ve and chronic changes From previous note 11/14/19 c/o right shoulder pain increasing and occasional ly locking. States had an MRI and was told by Dr. Woodward at [facility] that she had no cartilage left and had a bone spur, but she was too young for a shoulder replacemen t. Full ROM, negative empty can, belly press, lift off exams. Discussed lets increase meloxicam to daily for the next month or so to see if this decreases the pain. Lateral ep icondylitis of right humerus [id number] 18770 M77.11 From previous note 03/02/19 c/o pain to the lateral right elbow with weakness of right hand grasp off and on x 2 months and worsening. Denies any injury. Tenderness to the right lateral epicondyle . Discussed likely epicondyli tis and can treat with anti inflammato supriya and a brace. States she has a brace at home with the gel pad. Apply ice/heat off and on for the next 1-2 weeks to help reduce the inflammati on. RTC in 4-6 weeks if no improvemen t or sooner if any worsening. trial prednisone [id number] MD Rohan Burnett [address] [place] [address] 09/11/2020 15:23:50 09/11/2020 16:21:17 Adult attention deficit hyperactivity disorder 059952805 F90.9 Adult ADHD Self-Repor t Scale ASRS-V1.1 positive for ADHD symptoms advised to decrease wellbutrin dose to 150 mg w/ taking adderall pt is aware of ADR, will start on low dose and re-evaluat e in a couple months [id number] MD Rohan Burnett [address] [place] [address] 01/17/2021 15:37:50 01/17/2021 16:16:32 Chronic low back pain 345971106 M54.50 refill Screening for malignant neoplasm of breast 010325957 Z12.39 last mammogram 2020 Screening for malignant neoplasm of cervix 695692499 Z12.4 last pap 2018encour aged to schedule pap with [facility] Adult atte ntion deficit hyperactivity disorder 319165569 F90.9 01/17/2021: doing well on adderall 20 mg, helps her focus at workUDS on 12/24/20, , drug screen showed amphetamin e, tramadol and bupropion- pt is prescribed all of these meds. also showed diphenhydr aminef/u in 6 months 10/04/2020: increase adderall to 20 mg Adult ADHD Self-Repor t Scale ASRS-V1.1 positive for ADHD symptoms advised to decrease wellbutrin dose to 150 mg w/ taking adderall pt is aware of ADR, will start on low dose and re-evaluat e in a couple months [id number] MD Rohan Burnett [address] [place] [address] 12/24/2020 16:41:52 01/08/2021 11:09:04 Adult attention deficit hyperactivity disorder 186840953 F90.9 10/04/2020: increase adderall to 20 mg Adult ADHD Self-Repor t Scale ASRS-V1.1 positive for ADHD symptoms advised to decrease wellbutrin dose to 150 mg w/ taking adderall pt is aware of ADR, will start on low dose and re-evaluat e in a couple months [id number] MD Rohan Barajas [address] [place] [address] 04/07/2021 16:08:24 04/07/2021 16:26:01 Viral syndrome 146853980 B34.9 [id number] Luis bloom MD [facility] [address] [place] [address] 09/08/2021 14:38:41 09/09/2021 15:38:37 Chronic low back pain 153016077 M54.50 c/o worsening LBP x2 months with shooting pain into hips and thighstaki ng 2 tramadol with some relief of painno saddle anesthesia or loss of bowel/blad derdifficu lty increasing exercise due to pain16 lb weight gain since Jan1refill meloxicami ncrease tramadol to TIDUDSsign ed controlled substance contract Pain of bi lateral hip joints [id number] 5050406 M25.551 [facility] Adult atte ntion deficit hyperactivity disorder 411298363 F90.9 09/08/21: refillUDSs igned controlled substance contract 01/17/2021: doing well on adderall 20 mg, helps her focus at workUDS on 12/24/20, nl, drug screen showed amphetamin e, tramadol and bupropion- pt is prescribed all of these meds. also showed diphenhydr aminef/u in 6 months 10/04/2020: increase adderall to 20 mg Adult ADHD Self-Repor t Scale ASRS-V1.1 positive for ADHD symptoms advised to decrease wellbutrin dose to 150 mg w/ taking adderall pt is aware of ADR, will start on low dose and re-evaluat e in a couple months Depression screening 171 515384 Z13.31 PHQ 6 [id number] Luis bloom MD [facility] [address] [place] [address] 04/10/2022 09:05:31 04/14/2022 12:56:50 Chronic low back pain 115911490 M54.50 04/10/22:Aristides Sinclair (PM) first shot on 2pain free for 2 monthssche duled 2nd shot on 04/15/22ta kes tramadol PRNwill refill 09/08/21:c/ o worsening LBP x2 months with shooting pain into hips and thighstaki ng 2 tramadol with some relief of painno saddle anesthesia or loss of bowel/blad derdifficu lty increasing exercise due to pain16 lb weight gain since Janefill meloxicami ncrease tramadol to TIDUDSsign ed controlled substance contract Adult atte ntion deficit hyperactivity disorder 992946149 F90.9 04/10/22:t akes during the weekrefill 09/08/21: refillUDSs igned controlled substance contract 01/17/2021: doing well on adderall 20 mg, helps her focus at workUDS on 12/24/20, nl, drug screen showed amphetamin e, tramadol and bupropion- pt is prescribed all of these meds. also showed diphenhydr aminef/u in 6 months 10/04/2020: increase adderall to 20 mg Adult ADHD Self-Repor t Scale ASRS-V1.1 positive for ADHD symptoms advised to decrease wellbutrin dose to 150 mg w/ taking adderall pt is aware of ADR, will start on low dose and re-evaluat e in a couple months Adult heal th examination 556147008 Z00.00 yearly labs Screening for malignant neoplasm of colon 058609057 Z12.11 completed around 2017told no polyps, repeat in 10 yrs Fatigue 37484546 R53.83 C/o fatigue and eating ice for for 2 monthstrie d to donate blood and was told her iron was too lowPt starting taking iron 65 mg 1 wk agocheck iron studies and anti-infla mmatory labsadvise d to take iron before meals every other day Screening for malignant neoplasm of breast 530146720 Z12.39 completed 02/2022: normal [id number] Luis bloom MD [facility] [address] [place] [address] 08/12/2022 10:54:01 08/12/2022 11:39:05 Chronic low back pain 185771867 M54.50 08/12/22:2021- MRI lumbar spine showed multilevel lumbar spondylosi s with grade 1 L4-L5 and minimal L3-L4 spondyloli sthesis, severe L3-L4 and L4-L5 spinal stenosis, variable foraminal narrowings teroid injections only last 1 monthc/o burning pain to legshas appt with neurosurge ry on 08/24/22tria l low dose gabapentin for nerve pain and to help sleepf/u after neurosurge ry appt 04/10/22:Aristides Sinclair (PM) first shot on ain free for 2 monthssche duled 2nd shot on 04/15/22ta kes tramadol PRNwill refill 09/08/21:c/ o worsening LBP x2 months with shooting pain into hips and thighstaki ng 2 tramadol with some relief of painno saddle anesthesia or loss of bowel/blad derdifficu lty increasing exercise due to pain16 lb weight gain since Jan1refill meloxicami ncrease tramadol to TIDUDSsign ed controlled substance contract Adult atte ntion deficit hyperactivity disorder 838178513 F90.9 08/12/22:du e for CS and UDSdiscuss ed switching from stimulant to non-stimul ant, pt is amendablew ill discuss after neurosurge ry apptf/u in 3 months 04/10/22:t akes during the weekrefill 09/08/21: refillUDSs igned controlled substance contract 01/17/2021: doing well on adderall 20 mg, helps her focus at workUDS on 12/24/20, nl, drug screen showed amphetamin e, tramadol and bupropion- pt is prescribed all of these meds. also showed diphenhydr aminef/u in 6 months 10/04/2020: increase adderall to 20 mg Adult ADHD Self-Repor t Scale ASRS-V1.1 positive for ADHD symptoms advised to decrease wellbutrin dose to 150 mg w/ taking adderall pt is aware of ADR, will start on low dose and re-evaluat e in a couple months Depressive disorder 3548 9007 F32.9 PHQ 8on bupropiont ried to wean off but dark thoughts came back Screening for malignant neoplasm of colon 620493530 Z12.11 completed around 2017told no polyps, repeat in 10 yrs Morbid obesity 997483369 E66.01 discussed increasing exercise and healthier food options, high protein, low fat diet Menopausal syndrome 1237 28443 N95.9 x6 monthsuter us removed 2011, still has ovariesdif ficulty sleeping, hot flashes, no energydisc ussed management of symptoms and treatmentw ill trial low dose gabapentin to help with nerve pain and sleep [id number] SUNNI BRAND [facility] [address] [place] [address] 01/25/2023 14:48:58 01/25/2023 15:37:28 Chronic low back pain 717896458 M54.50 11/04/22:in crease gabapentin from 100 TID to 300 TIDmild relief with tramadolCT lumbar spine 11/27/22: severe lumbar spondylosi s, thoracolum bar levoscolio sis 08/12/22:2021- MRI lumbar spine showed multilevel lumbar spondylosi s with grade 1 L4-L5 and minimal L3-L4 spondyloli sthesis, severe L3-L4 and L4-L5 spinal stenosis, variable foraminal narrowings teroid injections only last 1 monthc/o burning pain to legshas appt with neurosurge ry on 08/24/22tria l low dose gabapentin for nerve pain and to help sleepf/u after neurosurge ry appt 04/10/22:D fabian Sinclair (PM) first shot on 2pain free for 2 monthssche duled 2nd shot on 04/15/22ta kes tramadol PRNwill refill 09/08/21:c/ o worsening LBP x2 months with shooting pain into hips and thighstaki ng 2 tramadol with some relief of painno saddle anesthesia or loss of bowel/blad derdifficu lty increasing exercise due to pain16 lb weight gain since Janefill meloxicami ncrease tramadol to TIDUDSsign ed controlled substance contract Pre-surger y evaluation 223626694 Z01.818 per Neurosurge ry note 11/09/22:cl audicatory low back and right greater than left lower extremity pain, fits with L5 distributi on of lumbar stenosis at L3-4, L4-5, neuroforam inal stenosis L5-S1, with scoliosis and mobile spondyloli sthesis on imaging. Tried PT, steroid injections , baclofen, gabapentin . Procedure- laminectom y, [place] decompress ion and [place] osteotomie s, fusion L3-S1 posterior lumbar compressio n and fusion L3-S1, scheduled for 02/02/[address] Cabrera work for 6 wks post opdiscusse d surgical risk with pt: ASA Grade I, perioperat den risk classifica tions intermedia te 1-5% due to spine surgery, bleeding risk is high due to spinal surgeryno indication s for pre-surgic al testing due to no cardiac respirator y diseaseneu ro is ordering EKG and lab work- rec'd copy results to PCPcleared pt for surgery and faxed clearance to neurosurge ry Osteopenia 817140244 M85 .80 neurosurge ry ordered DEXA 11/27/22:os teopenia to femoral neck left, total hip left, femoral neck R, total hip R, total hip mean, hip fracture risk 0.4%, major osteoporot ic fracture 5.7%discus sed taking daily Vitamin D and calcium supplement and weight bearing exercisewi ll repeat in 2-3 yrs Depression screening 171 976107 Z13.31 PHQ 5attribute s to arthritis/ chronic pain Osteoarthr itis of glenohumeral joint 302806101 M19.019 chronic8 yrsXR R shoulder 12/10/22:se flori R glenohumer al joint arthritis, mild AC joint arthritis, loose bodies presentwil l discuss interventi ons at f/u visit Screening for malignant neoplasm of breast 028941506 Z12.39 completed 02/2022: normaldue for repeat Discharge from right nipple [id number] 2062585 N64.52 x1 moclearno pain/redne ss/edema/e rythema/no dule presentPEx - clear discharge from R nipple, took culturerea ssured pt, most likely clogged ductdue for mammo in 1 mo [id number] Luis bloom MD [facility] [address] [place] [address] 08/06/2023 11:53:44 08/06/2023 12:45:25 History of lumbar fusion 0780008434 9106 Z98.1 08/06/23: neurosurge ry note 05/27/23: 3 mo post op L3-S1 decompress ion and interbody cage at L4-5 with instrument ed fusion L3-S1, walking for exercise, mild intermitte nt musculoske letal sx, please with overall progress, XRs show post op changes with improvemen t in spondyloli sthesis as well as scoliosis on XP and lateral XRs, f/u in [address] Rodriguez ts that she has been walking more and back pain has improved immensely since surgery Screening for malignant neoplasm of colon 235781892 Z12.11 completed around 2017told no polyps, repeat in 10 yrs Screening for malignant neoplasm of cervix 323323588 Z12.4 had PV with [facility], has appt 08/18/[address] pap 2018 Pain of le ft shoulder joint [id number] 4713923 M25.512 tramadol causes constipati on, no relief with 50 mg, taking with advilcan take 3 baclofen with relief, no relief with meloxicamt rial flexeril and will increase tramadol to 100 mg BIDupdate CS and UDS Depression screening 171 987331 Z13.31 PHQ 0 Obesity 973798623 E66.9 pt requesting to trial weight loss injection medication , insurance does not cover Osteoarthr itis of right glenohumeral joint [id number] 187837 M19.011 XR 11/2022- severe R glenohumer al joint arthritis, mild AC joint arthritis, loose bodies presenttra madol causes constipati on, no relief with 50 mg, taking with advilcan take 3 baclofen with relief, no relief with meloxicamt rial flexeril and will increase tramadol to 100 mg BIDupdate CS and UDS [id number] Selvin Pryor MD [facility] [address] [place] [address] 06/27/2024 16:23:24 06/27/2024 16:49:01 Candidiasis of mouth 27367725 B37.0 no relief with nystatin rinse x2 monthstria l oral fluconazol ehas upcoming dental appt Osteoarthr itis of glenohumeral joint 894999422 M19.019 06/27/24: following with new Ortho for R shoulder or knee replacemen t this fall 08/06/23- XR 11/2022- severe R glenohumer al joint arthritis, mild AC joint arthritis, loose bodies presenttra madol causes constipati on, no relief with 50 mg, taking with advilcan take 3 baclofen with relief, no relief with meloxicamt rial flexeril and will increase tramadol to 100 mg BIDupdate CS and UDS Osteopenia 506769000 M85 .80 06/27/24: f/u in 6 mo for DEXA order 01/25/23: neurosurge ry ordered DEXA 11/27/22:os teopenia to femoral neck left, total hip left, femoral neck R, total hip R, total hip mean, hip fracture risk 0.4%, major osteoporot ic fracture 5.7%discus sed taking daily Vitamin D and calcium supplement and weight bearing exercisewi ll repeat in 2-3 yrs Adult atte ntion deficit hyperactivity disorder 391178346 F90.9 06/27/24: c/w atomoxetin e 08/25/22:add erall out of stock for 3 wkstrial atomoxetin e 40 mg 08/12/22:du e for CS and UDSdiscuss ed switching from stimulant to non-stimul ant, pt is amendablew ill discuss after neurosurge ry apptf/u in 3 months 04/10/22:t akes during the weekrefill 09/08/21: refillUDSs igned controlled substance contract 01/17/2021: doing well on adderall 20 mg, helps her focus at workUDS on 12/24/20, nl, drug screen showed amphetamin e, tramadol and bupropion- pt is prescribed all of these meds. also showed diphenhydr aminef/u in 6 months 10/04/2020: increase adderall to 20 mg Adult ADHD Self-Repor t Scale ASRS-V1.1 positive for ADHD symptoms advised to decrease wellbutrin dose to 150 mg w/ taking adderall pt is aware of ADR, will start on low dose and re-evaluat e in a couple months Depressive disorder 3548 9007 F32.9 PHQ 0on bupropiont ried to wean off but dark thoughts came back Obesity 875430038 E66.9 BMI 36.9states that she will pay out of pocket for GLP-1will complete labs at [facility] HD Screening for malignant neoplasm of cervix 577807494 Z12.4 following with SOGApap scheduled in 2 mckeon estradiol and progestero ne Screening for malignant neoplasm of colon 091735266 Z12.11 completed around 2017told no polyps, repeat in 10 yrs Health Concerns Section Related Observation LastModified by Organization Detai ls LastModified Time None Recorded Concern Status LastModified by Organization Details LastModified Time None Recorded Advance Directives Directive N: Payers Insurance Date Sequence Insurance Name Policy Number Policy Piper Covered Member ID Piper Member ID Guarantor Name 06/27/2024 1 [employer] [id number] Iliana Swan [id number] Iliana Swan 06/27/2024 2 [place] [id number] Iliana Swan [id number] Iliana Swan 06/27/2024 1 [place] [id number] Iliana Gardner Swan [id number] Iliana Swan 06/27/2024 1 [employer] [id number] Iliana Swan [id number] Iliana Swan 06/27/2024 1 [employer] (POS) [id number] Iliana Swan [id number] Iliana Swan 06/27/2024 1 [facility] [id number] Iliana Gardner Swan [id number] Iliana Swan OBGyn Episode No OBEpisode recorded.
--- OUTSIDE RECORDS SUMMARY | 2024-11-14 16:05 | XMS_ITS | Data Portability ---
Author Organization [facility], [address] [place] [address] ([place]) Address [address] [id number] Assessment Encounter Date Assessment Date Assessment LastModified by Organization Details LastModified Time 07/11/2024 07/11/2024 Discussed the importance of using sunscreen SPF 30 as well as wearing a wide brimmed hat. Monitor for any new or changing moles or skin lesions. Recommended yearly full-body skin checks. Discussed ABCDEs of melanoma and gave the patient a skin cancer handout. Discussed etiology and treatment options with the patient. Explained that this is caused by a virus. Treatment options include oral cimetidine, topical creams such as imiquimod or Veregen, intralesional Candin injections, treatment with liquid nitrogen, Cantharone, and electrodesiccation and curettage. Patient aware that the area will blister and scab with the possibility of a scar. Also aware that the area can reoccur and may need multiple treatments in order to resolve. Patient also aware that insurance may not cover the cost of this treatment. Patient opted for treatment with liquid nitrogen and tolerated the procedure well. Wound care instructions given. Cyst removal scheduled in 2 weeks for a cyst to right upper back and a smaller cyst to left medial breast. [email or web address] Not available 07/11/2024 17:21:54 07/26/2024 07/26/2024 Epidermal cyst removal x 2: Discussed the etiology and treatment options with the patient. Patient requested to have it treated today. Discussed the signs and symptoms of infection, risk of bleeding, recurrence, and possibility of a scar. I and D of simple cyst was done at this time. Area was cleansed with Hibiclens and normal saline. 6mm punch was used to make an incision. Yellow, white, malodorous contents were extracted. Removed the sac. Used 2, 4-0 chromic sutures to close the superficial layer. Discussed wound care and written wound care instructions given. Patient aware to call with any questions, concerns, or complications. Discussed etiology and treatment options with the patient. Explained that this is caused by a virus. Treatment options include oral cimetidine, topical creams such as imiquimod or Veregen, intralesional Candin injections, treatment with liquid nitrogen, Cantharone, and electrodesiccation and curettage. Patient aware that the area will blister and scab with the possibility of a scar. Also aware that the area can reoccur and may need multiple treatments in order to resolve. Patient also aware that insurance may not cover the cost of this treatment. Patient opted for treatment with liquid nitrogen and tolerated the procedure well. Wound care instructions given. [email or web address] Not available 07/26/2024 15:54:29 08/22/2024 08/22/2024 Epidermal cyst removal x 2: Resolved. Areas look good. Discussed etiology and treatment options with the patient. Explained that this is caused by a virus. Treatment options include oral cimetidine, topical creams such as imiquimod or Veregen, intralesional Candin injections, treatment with liquid nitrogen, Cantharone, and electrodesiccation and curettage. Patient aware that the area will blister and scab with the possibility of a scar. Also aware that the area can reoccur and may need multiple treatments in order to resolve. Patient also aware that insurance may not cover the cost of this treatment. Patient opted for treatment with liquid nitrogen and tolerated the procedure well. Wound care instructions given. discussed Candin today since this is the 3rd time [email or web address] Not available 08/22/2024 16:13:08 10/17/2024 10/17/2024 Discussed etiolo gy and treatment options with the patient. Explained that this is caused by a virus. Treatment options include oral cimetidine, topical creams such as imiquimod or Veregen, intralesional Candin injections, treatment with liquid nitrogen, Cantharone, and electrodesiccation and curettage. Patient aware that the area will blister and scab with the possibility of a scar. Also aware that the area can reoccur and may need multiple treatments in order to resolve. Patient also aware that insurance may not cover the cost of this treatment. Patient opted for treatment with liquid nitrogen and tolerated the procedure well. Wound care instructions given. She did not want her thumb treated. Looks callused. Recommended Urea cream. [email or web address] Not available 10/17/2024 17:09:32 Plan of Treatment Reminders Order Date Submit Date Provider Last Modified By Organization Details Last Modified Time Details Appointments None record ed. Lab None record ed. Referral None record ed. Procedures None record ed. Surgeries None record ed. Imaging None record ed. Medication Orders None record ed. Patient TargetsNo targets recorded. Patient InstructionsNo instructions recorded. Reason for Referral None Reported. Problems Name Problem SNOMED Code Status Onset Date Resolution Date Notes Provider Name and Address Organization Details Recorded Time Seborrheic keratosis 848832742 Active 2024 Josefa Ramos PA-C [address] [place] [address], [phone], [facility] 5 14:14:58 Solar degeneration 76340292 Active 2024 Josefa Ramos PA-C [address] [place] [address], [phone], [facility] 5 14:15:00 Epidermoid cyst 400756037 Active 2024 Josefa Ramos PA-C [address] [place] [address], [phone], [facility] 5 14:15:06 Verruca vulgaris 07922873 Active 2024 Josefa Ramos PA-C [address] [place] [address], [phone], [facility] 5 17:21:07 Problem Notes None recorded. Procedures Surgical History Date Name Laterality Status Provider Name and Address Organization Details Recorded Time Cryosurgery Warts/Skin Tags completed Josefa Ramos PA-C [address] [place] [address], [phone], [facility] 10/17/2024 17:08:14 5 Cryosurgery Warts/Skin Tags completed Josefa Ramos PA-C [address] [place] [address], [phone], [facility] 08/21/2024 18:26:08 5 Cryosurgery Warts/Skin Tags completed Josefa Ramos PA-C [address] [place] [address], [phone], [facility] 07/26/2024 15:28:36 5 I&D completed Josefa Ramos PA-C [address] [place] [address], [phone], [facility] 07/26/2024 13:26:24 5 I&D cancelled Josefa Ramos PA-C [address] [place] [address], [phone], [facility] 07/25/2024 17:53:48 5 Cryosurgery Warts/Skin Tags completed Josefa Ramos PA-C [address] [place] [address], [phone], [facility] 07/11/2024 17:20:17 Imaging Results None recorded. Procedure Notes None recorded. Medical Equipment None Reported. Allergies No known drug allergies Medications Name Sig Start Date Stop Date Status Note LastModified by Organization Details LastModified Time cyclobenzap rine 10 mg tablet TAKE 1 TABLET BY MOUTH THREE TIMES DAILY NEEDED FOR LEFT SHOULDER PAIN active Not Available Not Available No t Available nystatin 100,000 unit/mL oral suspension SWISH 5 ML IN MOUTH AND SWALLOW 4 TIMES DAILY 07/11 completed Not Available Not Available Not Available prednisone 10 mg tablet TAKE 6 TABLETS BY MOUTH TODAY, 5 TABS TOMORROW, THEN DECREASE BY 1 TAB DAILY. TAKE WITH FOOD 07/11 completed Not Available Not Available Not Available fluconazole 150 mg tablet TAKE 1 TABLET BY MOUTH ONCE DAILY IN THE MORNING FOR 7 DAYS 07/11 completed Not Available Not Available Not Available benzonatate 200 mg capsule TAKE 1 CAPSULE BY MOUTH THREE TIMES DAILY NEEDED 07/11 completed Not Available Not Available Not Available prednisone 20 mg tablet TAKE 2 TABLETS BY MOUTH FOR 3 DAYS, THEN TAKE 1 TABLET FOR 7 DAYS. 07/11 completed Not Available Not Available Not Available tramadol 50 mg tablet TAKE 2 TABLETS BY MOUTH EVERY 12 HOURS NEEDED FOR PAIN active Not Available Not Available No t Available estradiol 1 mg tablet TAKE 1 TABLET BY MOUTH TWICE DAILY active Not Available Not Available No t Available progesteron e micronized 200 mg capsule TAKE 1 CAPSULE BY MOUTH EVERY DAY AT BEDTIME active Not Available Not Available No t Available albuterol sulfate HFA 90 mcg/actuati on [...] APPLY 1 PATCH TOPICALLY TWICE A WEEK active Not Available Not Available No t Available Caryn 0.075 mg/24 hr transdermal patch APPLY 1 PATCH TOPICALLY TWICE A WEEK FOR 28 DAYS active Not Available Not Available No t Available Vitals None Recorded Social History Question Answer Notes LastModified by Organizat ion Details LastModified Time Tobacco Smoking Status Never Smoker [facility] 07/11/2024 16:26:58 Do You Use Sunscreen Routinely? No Occasionally sheiserman Information not available 07/11/2024 Sex: Unknown Functional Status None recorded. Mental Status None recorded. Family History Nothing Reported Notes:denies fam hx of skin cancer Medical History No medical history recorded. Gynecological HistoryNo gynecological history recorded. Obstetrics History GPAL:G 0 P 0 0 0 0 Past Encounters Encounter ID Performer Location Encounter Start Date Encounter Closed Date Diagnosis/Indication Diagnosis SNOMED-CT Code Diagnosis ICD10 Code Diagnosis Note [id number] Josefa Ramos PA-C [facility] ([place]) [address] [place] [address] 07/11/2024 16:01:36 07/11/2024 16:51:28 Seborrheic keratosis 160573124 L82.1 Solar degeneration 06482 006 L57.8 Epidermoid cyst 42312875 6 L72.0 Verruca vulgaris 1873933 3 B07.9 [id number] Josefa Ramos PA-C [facility] ([place]) [address] [place] [address] 07/26/2024 14:53:28 07/26/2024 15:57:39 Epidermoid cyst 908981905 L72.0 Verruca vulgaris 5481602 3 B07.9 [id number] Josefa Ramos PA-C [facility] ([place]) [address] [place] [address] 08/22/2024 15:52:42 08/22/2024 16:13:23 Epidermoid cyst 971556760 L72.0 Verruca vulgaris 1112871 3 B07.9 [id number] [facility] ([place]) [address] [place] [address] 10/17/2024 16:29:54 10/17/2024 17:14:31 Verruca vulgaris 97432096 B07.9 Health Concerns Section Related Observation LastModified by Organization Detai ls LastModified Time None Recorded Concern Status LastModified by Organization Details LastModified Time None Recorded Advance Directives Directive None Recorded Payers Insurance Date Sequence Insurance Name Policy Number Policy Piper Covered Member ID Piper Member ID Guarantor Name 10/18/2024 1 [employer] [id number] Iliana Swan [id number] Iliana Swan OBGyn Episode No OBEpisode recorded.
== END 2024-11-14 16:01 | disposition home or self-care (01) ==
PROVIDERS: PCP Physician Assistant; Visit Provider Nurse Practitioner Adult Health
DX: M41.87 Other forms of scoliosis, lumbosacral region (principal); Z98.890 Other specified postprocedural states
CPT/HCPCS: 72110